=== PATIENT | female | born 1990 | race Caucasian/White ===

== ENCOUNTER → 2017-05-23 | Outpatient (CLI) | payer OTHER ==
[~2017-05-23] MED LIST: ZNTT/150 PO
== END | disposition home or self-care (01) ==
LOC: C.PAPS 12:15
PROVIDERS: ATTEND Physician Assistant
DX: Z12.4 Encounter for screening for malignant neoplasm of cervix (principal)

== ENCOUNTER → 2017-06-30 | Outpatient (CLI) | payer OTHER | END | disposition home or self-care (01) | LOC: C.PATHSPEC 17:29 | PROVIDERS: ATTEND Surgery | DX: L72.0 Epidermal cyst (principal) ==

== ENCOUNTER 2019-08-31 05:39 | Inpatient (IN) ==
[2019-08-31] MEDS ORDERED: OXYTOCIN 30 UNITS/500 ML BAG IV PRN ×3 (06:18→13:32)
[2019-08-31] MEDS ORDERED: BUTORPHANOL TARTRATE 1 MG/ML VIAL IV PRN (06:20)
--- NOTE | 2019-08-31 06:22 | History & Physical Report ---
Date of Service August 31, 2019 Assessment & Plan (1) Prolonged , antepartum: Admit to L&D. EFM/[place]. Labs, IV fluids. Will consult anesthesia due to fentanyl allergy for pain control options. History of Present Illness Chief Complaint: contractions Primary Care Provider: NO PCP 29yo @ 40 0/7 with contractions. + movement, no vaginal bleeding, no leaking fluid. uncomplicated. Cervix was closed in office on 08/28. Allergies Allergy/AdvReac Type Severity Reaction Status Date / Time fentanyl Allergy Severe HIVES Verified 08/31/19 05:54 ANAPHYLAXSIS Home Medications Home Medications Medication Instructions Recorded Confirmed Type prenat.vits,karlie,[id number] 1 tab PO DAILY 04/03/19 08/31/19 History Patient History Social History (Updated 07/24/19 @ 15:27 by Kalpana Anand) Preferred Language: [place] Communication Ability: Effective Visual Impairment: No Limitations Hearing Ability: Normal Visitor Services Assistant Required: No marital status: Current Living Situation: Spouse current occupational status: employed Feels Safe at Home: Yes Safety Concerns: Feels Safe At This Time Smoking Status: Former smoker Tobacco Type: cigarettes ; Age Started Using Tobacco: 19 ; Age Quit Using Tobacco: 28 ; packs per day: 1 ; Cigarettes Per Day: 2 ; Second Hand Exposure: Yes ; Hx Alcohol Use: No Hx Substance Use: No Childhood Exposure to Second-Hand Smoke: Yes Dental Care, Regularly: Yes Physical Activity Frequency: Daily Seatbelt Use: always Sunscreen Use: Yes Review of Systems All systems reviewed & are unremarkable except as noted in HPI & below Physical Exam Physical Exam: FHT Cat 1 toco Q 2-3 Constitutional: WD/WN, vitals as above Respiratory: normal respiratory effort, lungs clear to auscultation no respiratory distress Cardiovascular: Rate/Rhythm: regular rate and regular rhythm Gastrointestinal (Abdomen): Inspection/Auscultation: abdomen normal to inspection Percussion/Palpation: abdomen soft; abdomen nontender Gravid. No s/s chorio or abruption. Skin: no rashes, warm and dry Psychiatric: A+Ox3, euthymic affect Results & Data Vital Signs (Past 12 Hours) Vital Signs Temp Pulse Resp BP 08/31/19 05:56 36.6 C 18 08/31/19 05:49 76 129/60
[2019-08-31 06:43] LABS: Hematocrit (blood only) 38.4 % (37-47); Hemoglobin 12.9 g/dL (12.0-16.0); Mean Corpuscular Hemoglobin 29.7 pg (25-34); Mean Corpuscular Volume 88.5 fL (80-100); Mean Platelet Volume 9.3 fL (7.4-10.4); Platelet Count 370 K/uL (130-400); RDW Coefficient of Variation 13.9 % (11.5-14.5); RDW Standard Deviation 45.4 fL (36.4-46.3); Red Blood Count 4.34 M/uL (4.2-5.4); White Blood Count 13.52 K/uL (4.8-10.8)
[2019-08-31 06:47] LABS: Mean Corpuscular Hgb Conc 33.6 g/dL (32-36)
[2019-08-31] MEDS: LACTATED RINGER'S 1,000 ML IV PRN ×2 (07:04→08:20)
[2019-08-31] MEDS ORDERED: ONDANSETRON INJ 2 MG/ML 2 ML VIAL IV PRN (07:10)
[2019-08-31] MEDS ORDERED: DiphenhydrAMINE HCL 50 MG/ML VIAL IV PRN (07:10)
[2019-08-31] MEDS ORDERED: NALOXONE HCL 1 MG in SODIUM CHLORIDE 0.9% 1000ML 1,000 ML IV PRN (07:10)
[2019-08-31] MEDS ORDERED: NALOXONE HCL 0.4 MG/1 ML VIAL/CARP IV PRN (07:10)
[2019-08-31] MEDS ORDERED: NALBUPHINE HCL INJ 10 MG/ML AMP IV PRN (07:10)
[2019-08-31] MEDS ORDERED: ePHEDrine sulfate 50 MG/ML AMP IV PRN (07:10)
[2019-08-31] MEDS ORDERED: ROPIVACAINE 0.5% EPI PRN (07:28)
[2019-08-31] MEDS ORDERED: SODIUM CHLORIDE 0.9% EPI PRN (07:28)
[2019-08-31] MEDS ORDERED: HCL EPI PRN (07:28)
--- NOTE | 2019-08-31 07:31 | Anesthesiology Consultation ---
Date of Service August 31, 2019 Assessment & Plan (1) Encounter for pre-operative examination: Chart Review Chart Review: Patient NOT seen in Pre Admission Testing and Acceptable Risk for Labor Epidural Consults Requested none History Height/Weight Height: 4 ft 11 in Weight: 83.915 kg Allergies Allergy/AdvReac Type Severity Reaction Status Date / Time fentanyl Allergy Severe HIVES Verified 08/31/19 05:54 ANAPHYLAXSIS Medications Home Medications Medication Instructions Recorded Confirmed Last Taken prenat.vits,karlie,[id number] 1 tab PO DAILY 04/03/19 08/31/19 08/30/19 08:00 Active Medications Generic Name Dose Route Start Last Admin Trade Name Freq PRN Reason Stop Dose Admin Butorphanol Tartrate 1 mg 08/31/19 06:20 08/31/19 06:44 Stadol IV 09/30/19 06:19 1 mg Q2H PRN Administration Pain Lactated Ringer's 1,000 mls @ 125 mls/hr 08/31/19 06:18 08/31/19 07:04 Lr IV 09/02/19 06:17 999 mls/hr .Q8H PRN Administration L&D Protocol Protocol Past Medical History Medical History Abscess of chest wall (Resolved) Breast mass (Resolved) Chest pain (Resolved) Dysfunctional uterine bleeding (Resolved) Headache associated with sexual activity type 2 (Resolved) Ingrowing toenail (Resolved) Mass of right breast Nostril infection Pain, lower extremity Postcoital bleeding (Resolved) Right shoulder pain (Resolved) Suspected DVT (deep vein thrombosis) (Resolved) Thrush URI (upper respiratory infection) Varicosities of leg Exercise / Class Metabolic Activity II 4-5 Yardwork/Stairs/Walk up hill Past Family History Family History Grandfather (Maternal) Colorectal cancer Grandfather Diabetes Colorectal cancer Mother Lung disease Breast cancer Father Heart disease Lung disease Other Stroke Past Surgical History Surgical History S/P cholecystectomy S/P LASIK surgery S/P tonsillectomy S/P wisdom tooth extraction Past Anesthesia History No Hx of Anesthesia Complications and No Family Hx of Anesthesia Complications History of PONV No Hx of PONV and No Hx of Motion Sickness Social History Smoking Status: Former smoker tobacco type: cigarettes Smoking cigarettes per day: 2 Hx Alcohol Use: No Hx Substance Use: No Physical Exam Vital Signs Last Vital Signs Temp 36.7 C 08/31/19 07:15 Pulse 71 08/31/19 07:24 Resp 20 08/31/19 07:15 BP 112/68 08/31/19 07:14 Pulse Ox 95 08/31/19 07:24 Testing Laboratory Results 08/31/19 06:31
[2019-08-31] MEDS ORDERED: fentaNYL citrate 100 MCG/2 ML VIAL ONE (07:42)
[2019-08-31] MEDS ORDERED: ePHEDrine sulfate 50 MG/ML AMP ONE (07:42)
[2019-08-31] MEDS ORDERED: BUPIVACAINE 0.25% 30 ML VIAL ONE (07:42)
[2019-08-31] MEDS ORDERED: fentaNYL 2MCG/ML ROPIV 1.25MG/ML 100 ML BAG EPI ONE ×2 (07:43→08:09)
--- NOTE | 2019-08-31 10:36 | Labor Progress Brief Note ---
Date of Service August 31, 2019 Subjective comfortable Assessment & Plan (1) Normal labor: Will give some gentle pit to get contractions closer and more regular. fetus category one. anticipate . Physical Exam Constitutional: WD/WN, vitals as above Psychiatric: A+Ox3, euthymic affect Genitourinary: cx--8/100/0 arom--thin mec toco--q3-5min efm--140s wtih mod variability, accels to 150s, no decels Results & Data Vital Signs (Past 12 Hours) Vital Signs Temp Pulse Resp BP Pulse Ox 08/31/19 10:31 122 H 118/65 08/31/19 10:29 125 H 97 08/31/19 10:24 120 H 97 08/31/19 10:19 115 H 97 08/31/19 10:14 94 H 97 08/31/19 10:13 114 H 124/65 08/31/19 10:09 108 H 128/58 L 97 08/31/19 10:04 110 H 112/58 L 97 08/31/19 09:59 111 H 97 08/31/19 09:57 126 H 112/61 08/31/19 09:55 91 H 109/57 L 08/31/19 09:54 109 H 96 08/31/19 09:53 112 H 98/56 L 08/31/19 09:51 105 H 111/59 L 08/31/19 09:49 104 H 109/61 97 08/31/19 09:47 105 H 109/55 L 08/31/19 09:46 101 H 117/59 L 08/31/19 09:44 92 H 97 08/31/19 09:40 97 H 109/58 L 08/31/19 09:39 99 H 96 08/31/19 09:36 95 H 120/67 08/31/19 09:34 90 98 08/31/19 09:31 86 121/62 08/31/19 09:29 86 96 08/31/19 09:24 90 113/60 98 08/31/19 09:20 90 111/56 L 08/31/19 09:19 86 98 08/31/19 09:15 75 122/63 08/31/19 09:13 97 H 85 L 08/31/19 09:12 84 118/73 08/31/19 09:07 67 122/74 97 08/31/19 09:06 94 H 91 08/31/19 09:02 80 121/85 95 08/31/19 09:00 94 H 91 08/31/19 08:57 80 98 08/31/19 08:55 73 101/55 L 08/31/19 08:52 79 98 08/31/19 08:49 83 107/61 08/31/19 08:47 75 98 08/31/19 08:46 83 94 08/31/19 08:45 75 103/58 L 08/31/19 08:42 76 99 08/31/19 08:40 75 103/58 L 08/31/19 08:37 82 97 08/31/19 08:35 88 107/56 L 08/31/19 08:32 72 96 08/31/19 08:30 97 H 93 08/31/19 08:29 91 H 101/59 L 08/31/19 08:27 80 95/51 L 97 08/31/19 08:25 77 105/54 L 08/31/19 08:23 78 95/52 L 08/31/19 08:22 82 97 08/31/19 08:21 83 105/51 L 08/31/19 08:19 86 104/57 L 08/31/19 08:17 84 99/54 L 97 08/31/19 08:15 85 98/54 L 08/31/19 08:13 80 108/53 L 08/31/19 08:12 87 95 08/31/19 08:11 96/57 L 08/31/19 08:09 79 98/60 L 08/31/19 08:07 82 108/55 L 95 08/31/19 08:05 88 107/55 L 08/31/19 08:03 87 115/56 L 08/31/19 08:02 93 H 96 08/31/19 08:01 82 128/68 08/31/19 07:59 68 123/63 08/31/19 07:57 82 96 08/31/19 07:53 82 93 08/31/19 07:52 91 H 97 08/31/19 07:39 84 98 08/31/19 07:34 86 97 08/31/19 07:29 75 97 08/31/19 07:24 71 95 08/31/19 07:19 79 96 08/31/19 07:15 36.7 C 20 08/31/19 07:14 82 112/68 98 08/31/19 07:11 89 94 08/31/19 07:09 92 H 97 08/31/19 07:04 82 96 08/31/19 06:59 94 H 96 08/31/19 06:54 81 99 08/31/19 06:49 78 97 08/31/19 06:44 82 95 08/31/19 05:56 36.6 C 18 08/31/19 05:49 76 129/60
[2019-08-31] MEDS ORDERED: CALCIUM CARBONATE 500 MG CHEWABLE TAB ONE (11:33)
[2019-08-31] MEDS ORDERED: CALCIUM CARBONATE 500 MG CHEWABLE TAB PO PRN ×2 (11:37→17:02)
[2019-08-31] MEDS ORDERED: OXYCODONE/ACETAMINOPHEN 5mg/325mg TAB PO PRN (13:22)
--- NOTE | 2019-08-31 13:28 | Delivery Summary ---
Vaginal Delivery Summary Date of Service August 31, 2019 Vaginal Delivery Summary Pre-operative Diagnosis: at 40 weeks labor Post-operative Diagnosis: at 40 week labor thin mec Procedure: epidural arom first degree lac and right labial lac and repair EBL: 350cc Anesthesia: epidural Procedure: The patient pushed for about 2 hours to deliver a viable female infant in mikie position. The nose and mouth were bulb suctioned on the perineum and the rest of the infant was then delivered without difficulty. The baby was vigorous. The nose and mouth were again bulb suctioned and the infant was placed in the maternal abdomen for drying and attention. Cord was clamped and cut at one minute of life. Cord blood and segment obtained. Placenta delivered spontaneous, intact with a three vessel cord. Cervix/sulci/rectum were intact. A first degree perineal and right labial laceration was repaired in the normal standard fashion. Hemostasis obtained with dilute pitocin and fundal massage. Apgars were 9/9. Mother and baby doing well at the end of the delivery.
[2019-08-31] MEDS: ACETAMINOPHEN 325 MG TAB PO PRN (13:29)
[2019-08-31] MEDS ORDERED: SUPERCREAM 0.870% 15 GM JAR EXT PRN (13:32)
[2019-08-31] MEDS ORDERED: HYDROCORTISONE ACETATE 25 MG SUPP PR PRN (13:32)
[2019-08-31] MEDS ORDERED: DIPHTHERIA/TETANUS/PERTUSSIS 0.5 ML SYR/VIAL IM ONE (13:32)
[2019-08-31] MEDS ORDERED: BENZOCAINE 20% AER SPR 82.5 GM CAN EXT PRN (13:32)
[2019-08-31] MEDS ORDERED: bisacodyL 10 MG SUPP PR PRN (13:32)
--- NOTE | 2019-08-31 14:11 | Anesthesia Procedure Note ---
Date of Service August 31, 2019 Anesthesia Post Epidural Note Vital Signs Vital Signs: Temp Pulse Resp BP Pulse Ox 36.7 C 83 20 130/60 98 08/31/19 07:15 08/31/19 14:01 08/31/19 07:15 08/31/19 14:01 08/31/19 12:59 Pain Intensity Abdomen: Pain Intensity: 2 Notes Mental Status: alert / awake / arousable and participated in evaluation Patient Amnestic to Procedure: No Nausea / Vomiting: adequately controlled Pain: adequately controlled Airway Patency, RR, SpO2: stable & adequate BP & HR: stable & adequate Hydration State: stable & adequate Neuraxial Anesthesia: was administered and sensory block is resolving Anesthetic Complications: no major complications apparent and Pt Satisfied with anesthetic care Epidural: Removed without complications and With tip intact
[2019-08-31] MEDS: IBUPROFEN 600 MG TAB PO PRN (17:26)
[2019-08-31] MEDS: DOCUSATE SODIUM 100 MG CAP PO SCH (20:50)
[2019-09-01 07:06] LABS: Hematocrit (blood only) 33.2 % (37-47); Hemoglobin 11.2 g/dL (12.0-16.0)
--- NOTE | 2019-09-01 07:10 | Obstetrical Progress Note ---
Date of Service September 01, 2019 Assessment & Plan (1) Vaginal delivery: Doing well. Routine care. Day #:: 1 Subjective Ambulation: ambulating normally Voiding: no voiding problems Passing Gas:: Yes Diet Tolerance:: regular diet Lochia:: Small Feeding Type:: breast feeding Doing well. Physical Exam Constitutional WD/WN, vitals as above Cardiovascular Extremities: + edema (trace); no calf tenderness Gastrointestinal (Abdomen) soft, nt, nd ff/nt at u Psychiatric A+Ox3, euthymic affect Results & Data Vital Signs (Past 12 Hours) Vital Signs Temp Pulse Resp BP Pulse Ox 09/01/19 04:40 37.0 C 78 16 106/65 08/31/19 23:50 37.1 C 82 16 106/54 L 08/31/19 20:10 36.4 C L 62 20 126/71 98
[2019-09-01] MEDS: ACETAMINOPHEN 325 MG TAB PO PRN (07:30)
[2019-09-01] MEDS: PRENATAL VITAMIN 1 TAB PO SCH (07:30)
[2019-09-01] MEDS: DOCUSATE SODIUM 100 MG CAP PO SCH ×2 (07:30→19:46)
[2019-09-01] MEDS ORDERED: bisacodyL 5 MG TABEC PO SCH (20:00)
[2019-09-02] MEDS: IBUPROFEN 600 MG TAB PO PRN (06:49)
[2019-09-02] MEDS: DOCUSATE SODIUM 100 MG CAP PO SCH (07:58)
[2019-09-02] MEDS: PRENATAL VITAMIN 1 TAB PO SCH (07:58)
--- NOTE | 2019-09-02 08:21 | Obstetrical Progress Note ---
Date of Service September 02, 2019 Assessment & Plan (1) Vaginal delivery: 29yo S/P . Day 2 Doing well. Stable for discharge Day #:: 2 Subjective Ambulation: ambulating normally Voiding: no voiding problems Passing Gas:: Yes Diet Tolerance:: regular diet Lochia:: Moderate Current Pain Level(1-10): 2 Physical Exam Constitutional WD/WN, vitals as above Respiratory normal respiratory effort; no respiratory distress and no labored breathing Gastrointestinal (Abdomen) Inspection/Auscultation: abdomen normal to inspection; abdomen not distended Percussion/Palpation: abdomen soft; abdomen nontender, no guarding and abdomen not rigid Genitourinary OB Exam Abdomen: + fundal height Fundus: + firm and + relation to umbilicus (Below); not tender and not boggy Results & Data Vital Signs (Past 12 Hours) Vital Signs Temp Pulse Resp BP Pulse Ox 09/02/19 07:33 37.0 C 55 L 18 111/61 09/01/19 23:20 37.2 C 65 18 113/72 95
== END 2019-09-02 11:30 | disposition home or self-care (01) | DRG 807 ==
LOC: OPB 05:39 → 4S1 05:41 → 4S2 15:56

== ENCOUNTER 2020-08-07 18:15 | Inpatient (IN) ==
[2020-08-07] MEDS ORDERED: diphenhydrAMINE 50 MG/ML VIAL IV STA (18:33)
[2020-08-07] MEDS ORDERED: PROMETHAZINE 12.5 MG/50.5 ML BAG IV STA ×2 (18:33→20:34)
[2020-08-07] MEDS ORDERED: MoRPHine SULFATE 4 MG/ML 1 ML CARP\\VIAL IV STA ×2 (18:33→20:31)
[2020-08-07] MEDS ORDERED: ONDANSETRON INJ 2 MG/ML 2 ML VIAL IV STA (18:33)
[2020-08-07] MEDS ORDERED: SODIUM CHLORIDE 0.9% 1000ML 1,000 ML IV ONE (18:33)
[2020-08-07] MEDS ORDERED: KETOROLAC TROMETHAMINE 15 MG/ML VIAL IV STA (18:33)
--- NOTE | 2020-08-07 18:38 | Emergency Department Note ---
Impression & Plan Diffuse abdominal pain, Vomiting and diarrhea, Acute dehydration, COVID-19 ED Provider Note NAME: REBEKAH MIRANDA AGE: 30 SEX: F : 1990 ARRIVES VIA: Walk-In INFORMANT: [Patient] ED PROVIDER(S): [Aristeo Gallagher MD] CHIEF COMPLAINT: Abdominal pain HISTORY OF PRESENT ILLNESS: The patient is a 30-year-old female presents to the ER with 5 days of symptoms. She has had vomiting, nausea and diarrhea. She has diffuse abdominal pain that is a 9 on a scale of 1-10. Nothing makes the pain in the stomach better or worse. Patient states that she had a low-grade temperature with the start of her symptoms but that has resolved. There is no shortness of breath, no urinary complaints. She does not have cough or congestion or sore throat. No issues with her taste or smell. Of note, patient did test positive for COVID-19 on 30 July, at the time of her test, she was asymptomatic. She became ill after the test results returned. The patient's has COVID-19 but he has had significant improvement in his symptoms. REVIEW OF SYSTEMS: See HPI for pertinent positives and negatives. A total of ten systems were reviewed and were otherwise negative. PMHx/PSHx: See Below SOCIAL HISTORY: See Below. PHYSICAL EXAM: GENERAL: Patient is in no acute distress. HEENT: No acute trauma, normocephalic atraumatic, mucous membranes moist, no nasal congestion, no scleral icterus. NECK: No stridor, no adenopathy, no meningismus, trachea is midline. LUNGS: Clear to auscultation bilaterally, no wheeze, no rhonchi, breath sounds equal. HEART: Without murmurs gallops or rubs, regular rate and rhythm. ABDOMEN: Soft, mildly diffusely tender, bowel sounds positive, no hernias, no peritonitis. EXTREMITIES: No cyanosis or edema, full range of motion of all the joints without pain or difficulty, no signs for acute trauma. NEUROLOGIC: Oriented x 3, no acute motor or sensory deficits, no focal weakness. SKIN: No rash, no jaundice, no diaphoresis. DIFFERENTIAL DIAGNOSIS: Appendicitis, ovarian cyst, ovarian torsion, ectopic , TOA, PID, infections, COVID-19, dehydration, diverticulitis, UTI, obstruction, mesenteric ischemia, aortic pathology, inflammatory bowel disease, renal colic, PUD, pancreatitis, biliary pathology, hernia, volvulus, constipation, as well as other pathologies. EMERGENCY DEPARTMENT COURSE/PROCEDURES: ECG: Indication was abdominal pain. The ECG shows a normal sinus rhythm with a rate of 60. The QTc is 426. There is some diffuse nonspecific ST change. No ST elevation, no PVCs. Continuous Cardiac Monitoring: An order was placed for continuous cardiac monitoring. The monitor shows a rate of 62 with normal sinus rhythm. MEDICAL DECISION MAKING: There is no leukocytosis. No anemia. The patient has a normal platelet count. Potassium mildly low at 3.3, this value is not in need of emergent correction. There was no kidney failure. No worrisome liver enzyme elevation. No evidence for pancreatitis. testing was negative. ECG shows a sinus rhythm, no acute ischemia. Cardiac enzyme testing x1 is not consistent with acute cardiac injury. Urinalysis suggests some dehydration, no obvious infection. Chest film did not show pneumonia or CHF, there was no free air. Abdominal and pelvis CT shows a suspected bilateral Covid pneumonia, no acute intra-abdominal process, no bowel obstruction, no evidence for abscess. The patient presents with a diagnosis of COVID-19. She has had persistent vomiting, diarrhea and abdominal pain. She received IV saline, 1.5 L. She was given IV Phenergan, IV Zofran and IV morphine, she was given IV Toradol. She received IV Benadryl. She required some additional IV Phenergan and IV morphine for symptom control. Patient has had ongoing vomiting and diarrhea, she has diffuse abdominal pain. She does have COVID-19. The patient has required numerous medication to control her symptoms. She is still nauseated although feeling somewhat better. I do think a hospital stay is warranted. She needs symptom control and further hydration. I spoke to the patient, I talked to case management, the on-call hospitalist was consulted. Past Med/Surg History Medical History Abscess of chest wall Breast mass Chest pain Dysfunctional uterine bleeding Headache associated with sexual activity type 2 Ingrowing toenail Mass of right breast Nostril infection Pain, lower extremity Postcoital bleeding Right shoulder pain Suspected DVT (deep vein thrombosis) Thrush URI (upper respiratory infection) Varicosities of leg Surgical History (System 02/01/20 @ 13:37 by Leda Parham) H/O excision of epidermal inclusion cyst 06/30/17 - Dr Ramos: inflamed epidermal cyst History of dermoid cyst excision 01/26/[address] Ramos - right inner thigh/groin: granulation tissue a ssociated with acute and chronic inflammation including giant cell reaction surrounding follicle consistent with ruptured follicle/cyst S/P cholecystectomy S/P LASIK surgery 2015 S/P tonsillectomy S/P wisdom tooth extraction Family History (System 02/01/20 @ 13:37 by Leda Parham) Grandfather (Maternal) Colorectal cancer Grandfather Diabetes Mother Lung disease Small cell lung cancer. 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 Beliefs That Will Affect Care: None marital status: Current Living Situation: Spouse current occupational status: employed Feels Safe at Home: Yes Childhood Exposure to Second-Hand Smoke: Yes Dental Care, Regularly: Yes Physical Activity Frequency: Daily Seatbelt Use: always Sunscreen Use: Yes Assistive Devices: None Allergies Allergies Allergy/AdvReac Type Severity Reaction Status Date / Time fentanyl Allergy Severe HIVES Verified 08/07/20 18:36 ANAPHYLAXSIS Home Meds Home Medications Medication Instructions Recorded Confirmed levonorgestrel 20 mcg/24 hours (6 1 device IU DAILY 01/04/20 08/07/20 yrs) 52 mg intrauterine device Previous Rx's Medication Instructions Recorded ondansetron HCl 8 mg tablet 8 mg PO Q8H PRN #30 tab 08/07/20 Results & Data (ED) Vital Signs Vital Signs - 24 hr 08/07/20 18:18 08/07/20 19:05 08/07/20 19:55 Temperature 37 C Temperature Source Temporal Artery Scan Pulse Rate 76 56 L 76 Pulse Rate from SpO2 Sensor 56 L 63 Respiratory Rate 18 12 16 Respiratory Effort / Characteristics Non-Labored Respiratory Depth Normal Blood Pressure 132/90 107/66 110/65 Blood Pressure Mean 104 78 79 Pulse Oximetry 98 97 98 Oxygen Delivery Method Room Air Sepsis Recent Fever Within 48 Hours No Sepsis New/Unexplained Change in Mental Status No Sepsis Action Taken by Nursing No Action Required 08/07/20 20:00 08/07/20 20:30 08/07/20 21:10 Temperature Temperature Source Pulse Rate 61 57 L 61 Pulse Rate from SpO2 Sensor 54 L 56 L Respiratory Rate 20 17 20 Respiratory Effort / Characteristics Respiratory Depth Blood Pressure 118/66 130/81 135/80 Blood Pressure Mean 81 97 94 Pulse Oximetry 98 100 Oxygen Delivery Method Sepsis Recent Fever Within 48 Hours Sepsis New/Unexplained Change in Mental Status Sepsis Action Taken by Nursing 08/07/20 21:27 08/07/20 21:30 08/07/20 22:00 Temperature Temperature Source Pulse Rate 72 69 62 Pulse Rate from SpO2 Sensor 66 69 61 Respiratory Rate 15 16 18 Respiratory Effort / Characteristics Respiratory Depth Blood Pressure 122/65 118/72 104/73 Blood Pressure Mean 73 93 94 Pulse Oximetry 98 95 96 Oxygen Delivery Method Sepsis Recent Fever Within 48 Hours Sepsis New/Unexplained Change in Mental Status Sepsis Action Taken by Nursing 08/07/20 22:30 Temperature Temperature Source Pulse Rate Pulse Rate from SpO2 Sensor 60 Respiratory Rate Respiratory Effort / Characteristics Respiratory Depth Blood Pressure 99/65 L Blood Pressure Mean 70 Pulse Oximetry 97 Oxygen Delivery Method Sepsis Recent Fever Within 48 Hours Sepsis New/Unexplained Change in Mental Status Sepsis Action Taken by Usp Medications Current Medication List: was personally reviewed by me Laboratory Data Attestation: I reviewed the patient's lab results. Result diagrams: 08/07/20 19:03 08/07/20 19:03 Lab Results 08/07/20 08/07/20 08/07/20 Range/Units 19:03 19:03 19:03 WBC 4.40 L (4.8-10.8) K/uL RBC 5.08 (4.2-5.4) M/uL Hgb 15.1 (12.0-16.0) g/dL Hct 42.6 (37-47) % MCV 83.9 (80-100) fL MCH 29.7 (25-34) pg MCHC 35.4 (32-36) g/dL RDW Std Deviation 38.1 (36.4-46.3) fL RDW Coeff of [place] 12.6 (11.5-14.5) % Plt Count 196 (130-400) K/uL MPV 9.5 (7.4-10.4) fL Immature Gran % (Auto) 0.2 % Neut % (Auto) 40.3 % Lymph % (Auto) 50.0 % [place] % (Auto) 8.6 % Eos % (Auto) 0.7 % Baso % (Auto) 0.2 % Neut # (Auto) 1.77 (1.4-6.5) K/uL Lymph # (Auto) 2.20 (1.2-3.4) K/uL [place] # (Auto) 0.38 (0.11-0.59) K/uL Eos # (Auto) 0.03 (0-0.5) K/uL Baso # (Auto) 0.01 (0-0.2) K/uL Immature Gran # (Auto) 0.01 (0.00-0.02) K/uL Sodium 140 (136-145) mmol/L Potassium 3.3 L (3.5-5.1) mmol/L Chloride 107 (98-107) mmol/L Carbon Dioxide 27 (21-32) mmol/L Anion Gap 6.0 (3-11) BUN 11 (7-18) mg/dl Creatinine 0.90 (0.6-1.2) mg/dl Est Cr Clr Drug Dosing 86.7 ml/min Est GFR ( Amer) 99.4 Est GFR (Non-Af Amer) 85.8 BUN/Creatinine Ratio 12.2 (10-20) Glucose 101 H (70-99) mg/dl Calcium 8.6 (8.5-10.1) mg/dl Magnesium 2.4 (1.8-2.4) mg/dl Total Bilirubin 0.5 (0.2-1) mg/dl AST 29 (15-37) U/L ALT 56 (12-78) U/L Alkaline Phosphatase 88 (45-117) U/L Troponin I (0-0.045) ng/ml Total Protein 7.6 (6.4-8.2) gm/dl Albumin 3.9 (3.4-5.0) gm/dl Globulin 3.7 (2.5-4.0) gm/dl Albumin/Globulin Ratio 1.1 (0.9-2) Lipase 132 (73-393) U/L HCG, Qual Negative (Negative) Urine Color Urine Appearance (Clear) Urine pH (4.5-7.5) Ur Specific [place] (1.000-1.030) Urine Protein (Negative) Urine Glucose (UA) (Negative) Urine Ketones (Negative) Urine Blood (Negative) Urine Nitrite (Negative) Urine Bilirubin (Negative) Urine Urobilinogen (Negative) Ur Leukocyte Esterase (Negative) Urine WBC (Auto) (0-5) /hpf Urine RBC (Auto) (0-4) /hpf U Hyaline Cast (Auto) (0-5) /lpf U Epithel Cells (Auto) (0-5) /lpf Urine Bacteria (Auto) (Negative) Ur Renal Epithelial Cell Urine Mucus (None Prsent) 08/07/20 08/07/20 Range/Units 19:03 19:03 WBC (4.8-10.8) K/uL RBC (4.2-5.4) M/uL Hgb (12.0-16.0) g/dL Hct (37-47) % MCV (80-100) fL MCH (25-34) pg MCHC (32-36) g/dL RDW Std Deviation (36.4-46.3) fL RDW Coeff of [place] (11.5-14.5) % Plt Count (130-400) K/uL MPV (7.4-10.4) fL Immature Gran % (Auto) % Neut % (Auto) % Lymph % (Auto) % [place] % (Auto) % Eos % (Auto) % Baso % (Auto) % Neut # (Auto) (1.4-6.5) K/uL Lymph # (Auto) (1.2-3.4) K/uL [place] # (Auto) (0.11-0.59) K/uL Eos # (Auto) (0-0.5) K/uL Baso # (Auto) (0-0.2) K/uL Immature Gran # (Auto) (0.00-0.02) K/uL Sodium (136-145) mmol/L Potassium (3.5-5.1) mmol/L Chloride (98-107) mmol/L Carbon Dioxide (21-32) mmol/L Anion Gap (3-11) BUN (7-18) mg/dl Creatinine (0.6-1.2) mg/dl Est Cr Clr Drug Dosing ml/min Est GFR ( Amer) Est GFR (Non-Af Amer) BUN/Creatinine Ratio (10-20) Glucose (70-99) mg/dl Calcium (8.5-10.1) mg/dl Magnesium (1.8-2.4) mg/dl Total Bilirubin (0.2-1) mg/dl AST (15-37) U/L ALT (12-78) U/L Alkaline Phosphatase (45-117) U/L Troponin I < 0.015 (0-0.045) ng/ml Total Protein (6.4-8.2) gm/dl Albumin (3.4-5.0) gm/dl Globulin (2.5-4.0) gm/dl Albumin/Globulin Ratio (0.9-2) Lipase (73-393) U/L HCG, Qual (Negative) Urine Color Dark Yellow Urine Appearance Cloudy A (Clear) Urine pH 5.5 (4.5-7.5) Ur Specific [place] 1.025 (1.000-1.030) Urine Protein 1+ H (Negative) Urine Glucose (UA) Negative (Negative) Urine Ketones 1+ H (Negative) Urine Blood 1+ H (Negative) Urine Nitrite Negative (Negative) Urine Bilirubin Negative (Negative) Urine Urobilinogen Negative (Negative) Ur Leukocyte Esterase Negative (Negative) Urine WBC (Auto) 10-30 H (0-5) /hpf Urine RBC (Auto) 0-4 (0-4) /hpf U Hyaline Cast (Auto) 1-5 (0-5) /lpf U Epithel Cells (Auto) >30 H (0-5) /lpf Urine Bacteria (Auto) 1+ H (Negative) Ur Renal Epithelial Cell Not Reportable Urine Mucus Present A (None Prsent) Administered Medications Discontinued Medications Diphenhydramine HCl (Diphenhydramine 50 Mg/Ml Vial) 12.5 mg IV NOW STA Stop: 08/07/20 18:34 Last Admin: 08/07/20 19:23 Dose: 12.5 mg Documented by: [id number] Sodium Chloride (Nss 1000ml) 1,000 mls @ 999 mls/hr IV .Q1H1M ONE Stop: 12/17/20 19:33 Last Infusion: 08/07/20 20:47 Dose: 0 mls/hr Documented by: [id number] Admin: 08/07/20 19:22 Dose: 999 mls/hr Documented by: [id number] Promethazine HCl (Phenergan) 12.5 mg in 50.5 mls @ 202 mls/hr IV NOW STA Stop: 08/07/20 18:47 Last Infusion: 08/07/20 19:51 Dose: 0 mls/hr Documented by: [id number] Admin: 08/07/20 19:26 Dose: 202 mls/hr Documented by: [id number] Sodium Chloride (Nss 1000ml) 500 mls @ 999 mls/hr IV .Q31M ONE Stop: 08/07/20 20:36 Last Infusion: 08/07/20 22:21 Dose: 0 mls/hr Documented by: [id number] Admin: 08/07/20 21:05 Dose: 999 mls/hr Documented by: [id number] Promethazine HCl (Phenergan) 12.5 mg in 50.5 mls @ 202 mls/hr IV NOW STA Stop: 08/07/20 20:48 Last Infusion: 08/07/20 21:27 Dose: 0 mls/hr Documented by: [id number] Admin: 08/07/20 21:06 Dose: 202 mls/hr Documented by: [id number] Ioversol (Ioversol 100ml) 93 ml IV ONCE ONE Stop: 08/07/20 20:55 Last Admin: 08/07/20 20:54 Dose: 93 ml Documented by: [id number] Ketorolac Tromethamine (Ketorolac Tromethamine 15 Mg/Ml Vial) 15 mg IV NOW STA Stop: 08/07/20 18:34 Last Admin: 08/07/20 19:23 Dose: 15 mg Documented by: [id number] Morphine Sulfate (Morphine Sulfate 4 Mg/Ml 1 Ml Carp\Vial) 4 mg IV NOW STA Stop: 08/07/20 18:34 Last Admin: 08/07/20 19:24 Dose: 4 mg Documented by: [id number] Morphine Sulfate (Morphine Sulfate 4 Mg/Ml 1 Ml Carp\Vial) 4 mg IV NOW STA Stop: 08/07/20 20:32 Last Admin: 08/07/20 21:06 Dose: 4 mg Documented by: [id number] Ondansetron HCl (Ondansetron Inj 2 Mg/Ml 2 Ml Vial) 4 mg IV NOW STA Stop: 08/07/20 18:34 Last Admin: 08/07/20 19:22 Dose: 4 mg Documented by: [id number] Imaging Data Attestation: I personally reviewed and interpreted this imaging study as follows: My Impression: Chest x-ray: There is no focal infiltrate, no pneumothorax or mediastinal widening. No free air. Radiologist's Impression: Abdominal and pelvis CT with IV contrast: There are some lower lobe airway opacities consistent with COVID-19 pneumonia. No biliary ductal dilatation. There has been a cholecystectomy. No GI or urinary tract obstruction. Unremarkable appendix. There is an intrauterine device. Discharge Plan Visit Data Chief Complaint: Abdominal Pain Stated Complaint: ABD PAIN, COVID+ ED Provider: Aristeo Gallagher Discharge Problem: Diffuse abdominal pain, Vomiting and diarrhea, Acute dehydration, COVID-19 Patient Disposition: Admitted As Inpatient Condition: Fair Forms Stand Alone Forms: My [facility] Prescriptions Prescriptions: No Action ondansetron HCl 8 mg tablet 8 mg PO Q8H PRN (Reason: nausea and vomiting) Qty: 30 RF: 1 Mirena 20 mcg/24 hours (5 yrs) 52 mg intrauterine device 1 device IU DAILY RF: 0 Referrals Referrals: Alessandra Gonzalez MD [Primary Care Provider] -
[2020-08-07 19:20] LABS: Hematocrit (blood only) 42.6 % (37-47); Hemoglobin 15.1 g/dL (12.0-16.0); Mean Corpuscular Hemoglobin 29.7 pg (25-34); Mean Corpuscular Hgb Conc 35.4 g/dL (32-36); Mean Corpuscular Volume 83.9 fL (80-100); Mean Platelet Volume 9.5 fL (7.4-10.4); Platelet Count 196 K/uL (130-400); RDW Coefficient of Variation 12.6 % (11.5-14.5); RDW Standard Deviation 38.1 fL (36.4-46.3); Red Blood Count 5.08 M/uL (4.2-5.4)
[2020-08-07 19:38] LABS: Albumin Level 3.9 gm/dl (3.4-5.0); BUN Creatinine Ratio 12.2 (10-20); Calcium 8.6 mg/dl (8.5-10.1); Creatinine Clr Calc Pharmacy 86.7 ml/min; Est GFR (African American) 99.4; Est GFR (Non-African American) 85.8; Magnesium 2.4 mg/dl (1.8-2.4); Potassium 3.3 mmol/L (3.5-5.1)
[2020-08-07 19:41] LABS: Albumin Globulin Ratio 1.1 (0.9-2); Bilirubin,Total 0.5 mg/dl (0.2-1); Globulin 3.7 gm/dl (2.5-4.0); Total Protein 7.6 gm/dl (6.4-8.2)
[2020-08-07 19:45] LABS: Pregnancy Test, Serum Negative (Negative)
[2020-08-07 19:49] LABS: Appearance Urine Cloudy (Clear); Bacteria Urine Automated 1+ (Negative); Blood Urine 1+ (Negative); Color Urine Dark Yellow; Epithelial Cell Urine Auto >30 /lpf (0-5); Glucose Urine UA Negative (Negative); Ketones Urine 1+ (Negative); Leukocyte Esterase Urine Negative (Negative); Nitrite Urine Negative (Negative); Protein Urine 1+ (Negative); Specific Gravity Urine 1.025 (1.000-1.030); Urobilinogen Urine Negative (Negative); pH Urine 5.5 (4.5-7.5)
[2020-08-07 19:51] LABS: Basophils # (auto) 0.01 K/uL (0-0.2); Basophils % (auto) 0.2 %; Eosinophils # (auto) 0.03 K/uL (0-0.5); Eosinophils % (auto) 0.7 %; Immature Granulocytes # (auto) 0.01 K/uL (0.00-0.02); Immature Granulocytes % (auto) 0.2 %; Monocytes # (auto) 0.38 K/uL (0.11-0.59); Monocytes % (auto) 8.6 %; Neutrophils # (auto) 1.77 K/uL (1.4-6.5); Neutrophils % (auto) 40.3 %
[2020-08-07] MEDS ORDERED: SODIUM CHLORIDE 0.9% 1000ML 500 ML IV ONE (20:06)
[2020-08-07 20:07] LABS: Bilirubin Urine Negative (Negative); Ictotest Urine Negative (Negative)
[2020-08-07 20:09] LABS: Mucus Urine Present (None Prsent); RBC Urine Automated 0-4 /hpf (0-4)
[2020-08-07] MEDS ORDERED: OPTIRAY 320 100ml IV ONE (20:54)
[2020-08-07 21:58] LABS: Troponin I < 0.015 ng/ml (0-0.045)
--- NOTE | 2020-08-07 23:14 | History & Physical Report ---
Date of Service August 07, 2020 Assessment & Plan (1) Diffuse abdominal pain: 30yo C female with recent diagnosis of Covid-19 on 07/30/20 in outpatient setting presents with persistent abdominal pain, nausea, vomiting, diarrhea and po intolerance. Laboratory evaluation and CT imaging are largely unremarkable. Patient is afebrile, HD stable, NAD. Her abdomen is mildly tender with deep palpation, however, non-surgical with no peritoneal signs. ? persistent GI symptoms secondary to Covid-19 infection - patient has not had any respiratory symptoms during the course of her illness. -Observation to medical, maintain isolation precautions -Oxygenation is adequate on RA with no respiratory distress - currently 97% on RA. No clinical indication for treatment with steroids, Remdesivir -Check Lactate level -IV fluid and electrolyte repletion -Zofran PRN -Phenergan PRN -Floor is requiring repeat Covid testing prior to transfer - will order to be done in ER, however, this will not change placement needs as patient is only 8 days out from her positive outpatient test and is currently having symptoms that may be Covid-19 related therefore she would require isolation regardless. Present on Admission?: Yes (2) Vomiting and diarrhea: As above. Most likely secondary to Covid-19 -Fluid and electrolyte repletion -Zofran and Phenergan as needed -Pepcid 20mg IV daily - although not proven, this may help with abdominal symptoms as well as decrease disease severity Present on Admission?: Yes (3) COVID-19: As above. No respiratory complaints at this time. Patient seems to have predominantly GI symptoms. Adequate oxygenation on room air. CT reports bibasilar groundglass opacities consistent with Covid-19 PNA -Symptomatic management as above -Closely monitor respiratory status F/E/N - LR at 100mL/hr + KCL, K repletion, Clear diet - advance as tolerated Ppx - Lovenox 40 BID - increased risk of DVT in Covid-19 infection Code - Full Dispo - Observation to medical Present on Admission?: Yes History of Present Illness Chief Complaint: nausea, vomiting, diarrhea, abdominal pain Primary Care Provider: Alessandra Gonzalez MD Lissette Shukla is a 30yo C female presenting with nausea/vomiting/diarrhea/abdominal pain ongoing for the last 4-5 days. Patient was diagnosed with Covid-19 on 07/30/20. She felt well up until Tuesday when she developed persistent nausea with multiple episodes of non-bloody emesis, po intolerance. She also has had multiple episodes of watery diarrhea and abdominal pain, most in RLQ. She had a low grade fever for one day at the beginning of her illness but has been afebrile since. Denies CP/cough/SOB/loss of taste or smell. She has not been able to keep down any food or drink for the last 4 days. Her is also Covid+ and was recently hospitalized with SOB. He is now home and doing well. Patient feels slightly improved after the interventions below. Still with some nausea and abdominal pain. ER Course: Promethazine 12.5mg IV x 2 doses, Morphine 4mg, NSS x 1500mL, Morphine 4mg IV, Bendadryl 12.5mg IV, Toradol 15mg IV, Zofran 4mg IV Allergies Allergy/AdvReac Type Severity Reaction Status Date / Time fentanyl Allergy Severe HIVES Verified 08/07/20 18:36 ANAPHYLAXSIS Home Medications Medication Instructions Recorded Confirmed Type levonorgestrel 20 mcg/24 hours (6 1 device IU DAILY 01/04/20 08/07/20 History yrs) 52 mg intrauterine device ondansetron HCl 8 mg tablet 8 mg PO Q8H PRN #30 tab 08/07/20 08/07/20 Rx Past Med/Surg History Medical History Abscess of chest wall Breast mass Chest pain Dysfunctional uterine bleeding Headache associated with sexual activity type 2 Ingrowing toenail Mass of right breast Nostril infection Pain, lower extremity Postcoital bleeding Right shoulder pain Suspected DVT (deep vein thrombosis) Thrush URI (upper respiratory infection) Varicosities of leg Surgical History (System 02/01/20 @ 13:37 by Leda Parham) H/O excision of epidermal inclusion cyst 06/30/17 - Dr Ramos: inflamed epidermal cyst History of dermoid cyst excision 01/26/[address] Ramos - right inner thigh/groin: granulation tissue associated with acute and chronic inflammation including giant cell reaction surrounding follicle consistent with ruptured follicle/cyst S/P cholecystectomy S/P LASIK surgery 2015 S/P tonsillectomy S/P wisdom tooth extraction Family History (System 02/01/20 @ 13:37 by Leda Parham) Grandfather (Maternal) Colorectal cancer Grandfather Diabetes Mother Lung disease Small cell lung cancer. 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 Beliefs That Will Affect Care: None marital status: Current Living Situation: Spouse current occupational status: employed Feels Safe at Home: Yes Childhood Exposure to Second-Hand Smoke: Yes Dental Care, Regularly: Yes Physical Activity Frequency: Daily Seatbelt Use: always Sunscreen Use: Yes Assistive Devices: None Review of Systems Review of Systems: All systems reviewed & are unremarkable except as noted in HPI & below Physical Exam Physical Exam: General: patient resting comfortably, NAD, non-toxic in appearance, AA&O x 4 Skin: warm, dry, intact, no rashes or lesions HEENT: NC/AT, PERRL, EOMI, anicteric sclera, conjunctiva without injection, external ear normal to inspection and nontender, nares patent, dry mucus membranes with black discoloration of tongue, dentition intact, no oropharyngeal lesions, neck supple, trachea midline, no LAD, no thyromegaly, no JVD Heart: +S1/S2, regular, no m/r/g Lungs: equal air entry bilaterally, no rales/rhonchi/wheezes Abd: +BS, soft, mildly tender in lower abdomen with deep palpation without rebound/guarding/peritoneal signs, no masses/organomegaly/ascites Ext: warm, 2+ pulses in UE/LE bilaterally, no clubbing/cyanosis or edema Neuro: nonfocal, patient AA&O x 4, speech intact, no facial droop, moving all extremities on command with equal strength 5/5 Results & Data Results & Data ([facility]) Vital Signs (Past 12 Hours) Vital Signs Temp Pulse Resp BP Pulse Ox 08/07/20 22:30 99/65 L 97 08/07/20 22:00 62 18 104/73 96 08/07/20 21:30 69 16 118/72 95 08/07/20 21:27 72 15 122/65 98 08/07/20 21:10 61 20 135/80 08/07/20 20:30 57 L 17 130/81 100 08/07/20 20:00 61 20 118/66 98 08/07/20 19:55 76 16 110/65 98 08/07/20 19:05 56 L 12 107/66 97 08/07/20 18:18 37 C 76 18 132/90 98 Laboratory Results Lab Results 08/07/20 08/07/20 08/07/20 Range/Units 19:03 19:03 19:03 WBC 4.40 L (4.8-10.8) K/uL RBC 5.08 (4.2-5.4) M/uL Hgb 15.1 (12.0-16.0) g/dL Hct 42.6 (37-47) % MCV 83.9 (80-100) fL MCH 29.7 (25-34) pg MCHC 35.4 (32-36) g/dL RDW Std Deviation 38.1 (36.4-46.3) fL RDW Coeff of [place] 12.6 (11.5-14.5) % Plt Count 196 (130-400) K/uL MPV 9.5 (7.4-10.4) fL Immature Gran % (Auto) 0.2 % Neut % (Auto) 40.3 % Lymph % (Auto) 50.0 % Cloud % (Auto) 8.6 % Eos % (Auto) 0.7 % Baso % (Auto) 0.2 % Neut # (Auto) 1.77 (1.4-6.5) K/uL Lymph # (Auto) 2.20 (1.2-3.4) K/uL Cloud # (Auto) 0.38 (0.11-0.59) K/uL Eos # (Auto) 0.03 (0-0.5) K/uL Baso # (Auto) 0.01 (0-0.2) K/uL Immature Gran # (Auto) 0.01 (0.00-0.02) K/uL Sodium 140 (136-145) mmol/L Potassium 3.3 L (3.5-5.1) mmol/L Chloride 107 (98-107) mmol/L Carbon Dioxide 27 (21-32) mmol/L Anion Gap 6.0 (3-11) BUN 11 (7-18) mg/dl Creatinine 0.90 (0.6-1.2) mg/dl Est Cr Clr Drug Dosing 86.7 ml/min Est GFR ( Amer) 99.4 Est GFR (Non-Af Amer) 85.8 BUN/Creatinine Ratio 12.2 (10-20) Glucose 101 H (70-99) mg/dl Calcium 8.6 (8.5-10.1) mg/dl Magnesium 2.4 (1.8-2.4) mg/dl Total Bilirubin 0.5 (0.2-1) mg/dl AST 29 (15-37) U/L ALT 56 (12-78) U/L Alkaline Phosphatase 88 (45-117) U/L Troponin I (0-0.045) ng/ml Total Protein 7.6 (6.4-8.2) gm/dl Albumin 3.9 (3.4-5.0) gm/dl Globulin 3.7 (2.5-4.0) gm/dl Albumin/Globulin Ratio 1.1 (0.9-2) Lipase 132 (73-393) U/L HCG, Qual Negative (Negative) Urine Color Urine Appearance (Clear) Urine pH (4.5-7.5) Ur Specific [place] (1.000-1.030) Urine Protein (Negative) Urine Glucose (UA) (Negative) Urine Ketones (Negative) Urine Blood (Negative) Urine Nitrite (Negative) Urine Bilirubin (Negative) Urine Urobilinogen (Negative) Ur Leukocyte Esterase (Negative) Urine WBC (Auto) (0-5) /hpf Urine RBC (Auto) (0-4) /hpf U Hyaline Cast (Auto) (0-5) /lpf U Epithel Cells (Auto) (0-5) /lpf Urine Bacteria (Auto) (Negative) Ur Renal Epithelial Cell Urine Mucus (None Prsent) 08/07/20 08/07/20 Range/Units 19:03 19:03 WBC (4.8-10.8) K/uL RBC (4.2-5.4) M/uL Hgb (12.0-16.0) g/dL Hct (37-47) % MCV (80-100) fL MCH (25-34) pg MCHC (32-36) g/dL RDW Std Deviation (36.4-46.3) fL RDW Coeff of [place] (11.5-14.5) % Plt Count (130-400) K/uL MPV (7.4-10.4) fL Immature Gran % (Auto) % Neut % (Auto) % Lymph % (Auto) % Cloud % (Auto) % Eos % (Auto) % Baso % (Auto) % Neut # (Auto) (1.4-6.5) K/uL Lymph # (Auto) (1.2-3.4) K/uL Cloud # (Auto) (0.11-0.59) K/uL Eos # (Auto) (0-0.5) K/uL Baso # (Auto) (0-0.2) K/uL Immature Gran # (Auto) (0.00-0.02) K/uL Sodium (136-145) mmol/L Potassium (3.5-5.1) mmol/L Chloride (98-107) mmol/L Carbon Dioxide (21-32) mmol/L Anion Gap (3-11) BUN (7-18) mg/dl Creatinine (0.6-1.2) mg/dl Est Cr Clr Drug Dosing ml/min Est GFR ( Amer) Est GFR (Non-Af Amer) BUN/Creatinine Ratio (10-20) Glucose (70-99) mg/dl Calcium (8.5-10.1) mg/dl Magnesium (1.8-2.4) mg/dl Total Bilirubin (0.2-1) mg/dl AST (15-37) U/L ALT (12-78) U/L Alkaline Phosphatase (45-117) U/L Troponin I < 0.015 (0-0.045) ng/ml Total Protein (6.4-8.2) gm/dl Albumin (3.4-5.0) gm/dl Globulin (2.5-4.0) gm/dl Albumin/Globulin Ratio (0.9-2) Lipase (73-393) U/L HCG, Qual (Negative) Urine Color Dark Yellow Urine Appearance Cloudy A (Clear) Urine pH 5.5 (4.5-7.5) Ur Specific [place] 1.025 (1.000-1.030) Urine Protein 1+ H (Negative) Urine Glucose (UA) Negative (Negative) Urine Ketones 1+ H (Negative) Urine Blood 1+ H (Negative) Urine Nitrite Negative (Negative) Urine Bilirubin Negative (Negative) Urine Urobilinogen Negative (Negative) Ur Leukocyte Esterase Negative (Negative) Urine WBC (Auto) 10-30 H (0-5) /hpf Urine RBC (Auto) 0-4 (0-4) /hpf U Hyaline Cast (Auto) 1-5 (0-5) /lpf U Epithel Cells (Auto) >30 H (0-5) /lpf Urine Bacteria (Auto) 1+ H (Negative) Ur Renal Epithelial Cell Not Reportable Urine Mucus Present A (None Prsent) Diagnostic Findings CT Abdomen and Pelvis with Contrast: Per STAT-rad - Compared to CT abdomen and pelvis and gallbladder US of 01/05/20. Lower lobe airspace infiltrates suggesting coronavirus pneumonia in this clinical setting. Interval cholecystectomy. No biliary ductal dilation. No GI or urinary tract obstruction. Unremarkable appendix. Intrauterine device. ECG Additional Comments: EKG with NSR at 60, normal axis, RJ=704, QRS=92, PLk=518, no acute ischemic changes Code Status & VTE Plan VTE Prophylaxis Plan VTE Prophylaxis will be ordered: Yes PG Care Time/CCT Total # of Minutes Spent Total Time Spent with Patient: Total time spent is greater than 50% in coordination of care (as documented) at patient's floor/unit and/or counseling patient: Coding Level of Care Code 31427 OBS Care - Level 2 Diagnoses Diffuse abdominal pain R10.84 Vomiting and diarrhea R11.10; R19.7 COVID-19 U07.1
[2020-08-08] MEDS ORDERED: PROMETHAZINE HCL 6.25 MG in SODIUM CHLORIDE 0.9% 50 ML IV PRN (02:10)
[2020-08-08] MEDS: POTASSIUM CHLORIDE 20 MEQ in LACTATED RINGER'S 1,000 ML IV SCH ×2 (03:28→15:01)
[2020-08-08] MEDS: ENOXAPARIN INJ 40 MG/0.4 ML SYR SQ SCH ×2 (03:28→20:42)
[2020-08-08 03:32] LABS: Phosphorus 2.4 mg/dl (2.5-4.9)
--- NOTE | 2020-08-08 08:02 | XRay Report ---
XR chest 1V portable CLINICAL HISTORY: covid, pain COMPARISON STUDY: Chest radiograph and chest CT August 10, 2014. FINDINGS: Lung volumes are normal. Lungs are clear. There is no pneumothorax or pleural effusion. Car diac size is normal. Mediastinal contours are normal. There is no evidence for pulmonary edema. IMPRESSION: No acute cardiopulmonary findings. ACT 112: Negative or not required by law. Electronically signed by: Ambrocio Gonzalez M.D. 08/08/2020 8:01 AM
--- NOTE | 2020-08-08 08:22 | CT Scan Report ---
CT OF THE ABDOMEN AND PELVIS WITH CONTRAST CLINICAL HISTORY: nvd, abd pain COMPARISON STUDY: CT of the abdomen and pelvis and right upper quadrant ultrasound January 05, 2012. TECHNIQUE: Following IV administration of 93 mL of Optiray-320, axial images of the abdomen and pelvi s were obtained from the lung bases to the proximal femurs. Images were reviewed in the axial, sagitt al, and coronal planes. IV contrast was administered without complication. Automated exposure contro l was utilized for the study. A dose lowering technique was utilized adhering to the principles of A [place]. CT DOSE: 884.58 mGycm FINDINGS: Visualized portions of the lower chest demonstrate multifocal groundglass opacities. No pne umatosis, free air or portal venous gas is present. The gallbladder is surgically absent. There is no significant biliary ductal dilatation. The spleen, adrenal glands, kidneys and pancreas are normal. There is no evidence for a bowel obstruction. The appendix is normal. Intrauterine device is in place . The ovaries are not enlarged. There is no lymphadenopathy or ascites. Major vasculature is patent. There are no suspicious osseous lesions or acute fractures within visualized skeletal structures. IMPRESSION: 1. Multifocal groundglass opacities within the lower lungs consistent with viral pneumonia. 2. No acute process within the abdomen or pelvis. 2. Intrauterine device in place. ACT 112: Negative or not required by law. Electronically signed by: Ambrocio Gonzalez M.D. 08/08/2020 8:20 AM
[2020-08-08] MEDS: FAMOTIDINE 20 MG in SYRINGE 3 ML IV SCH (08:48)
[2020-08-08] MEDS: ONDANSETRON INJ 2 MG/ML 2 ML VIAL IV PRN ×2 (08:48→21:14)
--- NOTE | 2020-08-08 20:32 | Hospitalist Progress Note ---
Date of Service August 08, 2020 Assessment & Plan (1) Diffuse abdominal pain: 30yo C female with recent diagnosis of Covid-19 on 07/30/20 in outpatient setting presents with persistent abdominal pain, nausea, vomiting, diarrhea and po intolerance. Laboratory evaluation and CT imaging are largely unremarkable except bibasilar opacities consistent with pneumonia seen on CT abdomen/pelvis. Patient is afebrile, HD stable, NAD. Her abdomen is mildly tender with deep palpation, however, non-surgical with no peritoneal signs. This is persistent GI symptoms secondary to Covid-19 infection - patient has not had any respiratory symptoms during the course of her illness. Lactate was normal -She is much improved today with no further nausea or vomiting. She is tolerating clear liquids diet. Still having some diarrhea. Abdominal pain is now resolved -Continue IV fluids with potassium for electrolyte replacement Follow BMP in the morning as well as magnesium and phosphorus -Oxygenation is adequate on RA with no respiratory distress - currently 97% on RA. No clinical indication for treatment with steroids, Remdesivir -Zofran PRN -Phenergan PRN -Her Covid test was repeated prior to arrival on the floor and was negative, however she will remain on airborne and contact precautions for Covid-19 as she is still symptomatic -Advance diet to low fiber (2) Vomiting and diarrhea: As above. Most likely secondary to Covid-19 -Continue IV Pepcid (3) Hypokalemia: Potassium mildly low secondary to GI losses Replacing potassium chloride and IV fluids maintenance Follow BMP in the morning (4) COVID-19: As above. No respiratory complaints at this time. Patient seems to have predominantly GI symptoms. Adequate oxygenation on room air. CT reports bibasil ar groundglass opacities consistent with Covid-19 PNA -Symptomatic management as above -Closely monitor respiratory status F/E/N -continue LR at 100mL/hr + KCL, K repletion, advancing diet to low fiber Ppx - Lovenox 40 BID - increased risk of DVT in Covid-19 infection as well as a history of varicose veins with superficial thrombophlebitis Code - Full Dispo -continued stay, but likely discharge to home on 08/09 Admission and Anticipated Discharge Date Admission Date: August 08, 2020 Subjective Patient feeling better today, nausea has improved, no further abdominal pain. Has had 2 loose stools. Denies chest pain or shortness of breath, denies cough. Remains afebrile. Reports she thinks she is ready to try some low fiber food. She does not think she is ready to go home yet as she tends to get more nauseated in the morning and wants to see how she does in the morning again before she goes. Review of Systems Review of Systems: All systems reviewed & are unremarkable except as noted in HPI & below Physical Exam Constitutional: WD/WN, vitals as above Eyes: + anicteric sclerae ENMT: external ear and nose normal, oropharynx normal Neck: trachea midline, no thyromegaly Respiratory: normal respiratory effort, lungs clear to auscultation Cardiovascular: RRR, no murmur, no edema Chest (Breasts): Chest: normal inspection of chest Gastrointestinal (Abdomen): normal bowel sounds, soft, nontender, no hepatosplenomegaly Musculoskeletal: Extremities: extremities normal to inspection; no cyanosis and no clubbing Skin: no rashes, warm and dry Neurologic: moves all extremities and awake; no focal motor deficits Psychiatric: A+Ox3, euthymic affect Lymphatic: no lymphedema Results & Data Results & Data ([facility]) Vital Signs (Past 12 Hours) Vital Signs Temp Pulse Resp BP Pulse Ox 08/08/20 17:07 37.0 C 63 16 118/74 97 Laboratory Results 08/08/20 08/08/20 08/07/20 Range/Units Unknown 03:47 19:03 Lactate 0.8 (0.4-2.0) mmol/L Phosphorus 2.4 L Troponin I < 0.015 (0-0.045) ng/ml SARS-CoV-2 Ag (Rapid) Negative (Negative) 08/07/20 Range/Units 19:03 Lactate (0.4-2.0) mmol/L Phosphorus Cancelled Troponin I (0-0.045) ng/ml SARS-CoV-2 Ag (Rapid) (Negative) PG Care Time/CCT Total # of Minutes Spent Total Time Spent with Patient: Total time spent is greater than 50% in coordination of care (as documented) at patient's floor/unit and/or counseling patient: Coding Level of Care Code 33800 Subseq Hosp Care Lvl 2 Diagnoses Diffuse abdominal pain R10.84 Vomiting and diarrhea R11.10; R19.7 Hypokalemia E87.6 COVID-19 U07.1
[2020-08-09] MEDS ORDERED: ACETAMINOPHEN 325 MG TAB PO PRN (01:10)
[2020-08-09] MEDS: ENOXAPARIN INJ 40 MG/0.4 ML SYR SQ SCH ×2 (05:38→17:23)
--- NOTE | 2020-08-09 06:01 | Electrocardiogram Report ---
Test Reason : Blood Pressure : / mmHG Vent. Rate : 060 BPM Atrial Rate : 060 BPM P-R Int : 128 ms QRS Dur : 092 ms QT Int : 426 ms P-R-T Axes : 017 -09 016 degrees QTc Int : 426 ms Normal sinus rhythm Nonspecific T wave abnormality Abnormal ECG When compared with ECG of 10-AUG-2014 13:46, Nonspecific T wave abnormality now evident in Anterolateral leads Confirmed by Carlos Simmons ([id number]) on 08/09/2020 6:00:40 AM Referred By: REFERRED SELF Confirmed By:Carlos Simmons
[2020-08-09 06:37] LABS: Hematocrit (blood only) 37.9 % (37-47); Hemoglobin 13.1 g/dL (12.0-16.0); Mean Corpuscular Hgb Conc 34.6 g/dL (32-36); Mean Corpuscular Volume 83.8 fL (80-100); Mean Platelet Volume 9.4 fL (7.4-10.4); Platelet Count 174 K/uL (130-400); RDW Coefficient of Variation 12.6 % (11.5-14.5); RDW Standard Deviation 38.5 fL (36.4-46.3); Red Blood Count 4.52 M/uL (4.2-5.4); White Blood Count 4.45 K/uL (4.8-10.8)
[2020-08-09 07:11] LABS: Albumin Level 3.1 gm/dl (3.4-5.0); BUN Creatinine Ratio 13.3 (10-20); Calcium 7.9 mg/dl (8.5-10.1); Creatinine Clr Calc Pharmacy 129.4 ml/min; Est GFR (African American) 135.4; Est GFR (Non-African American) 116.8; Magnesium 2.1 mg/dl (1.8-2.4); Potassium 3.6 mmol/L (3.5-5.1)
[2020-08-09 07:13] LABS: Basophils # (auto) 0.01 K/uL (0-0.2); Basophils % (auto) 0.2 %; Eosinophils # (auto) 0.06 K/uL (0-0.5); Eosinophils % (auto) 1.3 %; Lymphocytes # (auto) 2.98 K/uL (1.2-3.4); Monocytes # (auto) 0.26 K/uL (0.11-0.59); Monocytes % (auto) 5.8 %; Neutrophils # (auto) 1.14 K/uL (1.4-6.5); Neutrophils % (auto) 25.7 %; RBC Morphology Unremarkable
[2020-08-09 07:19] LABS: Bilirubin,Total 0.5 mg/dl (0.2-1); Globulin 3.1 gm/dl (2.5-4.0); Phosphorus 2.3 mg/dl (2.5-4.9); Total Protein 6.2 gm/dl (6.4-8.2)
[2020-08-09] MEDS: ONDANSETRON INJ 2 MG/ML 2 ML VIAL IV PRN (08:38)
[2020-08-09] MEDS ORDERED: PROMETHAZINE HCL 12.5 MG in SODIUM CHLORIDE 0.9% 50 ML IV PRN (09:30)
[2020-08-09] MEDS: FAMOTIDINE 20 MG in SYRINGE 3 ML IV SCH (09:36)
[2020-08-09] MEDS: POT PHOSPHATE MONOBASIC W/ SOD TAB PO SCH ×4 (09:36→21:49)
--- NOTE | 2020-08-09 09:38 | Hospitalist Progress Note ---
Date of Service August 09, 2020 Assessment & Plan (1) Diffuse abdominal pain: 30yo C female with recent diagnosis of Covid-19 on 07/30/20 in outpatient setting presents with persistent abdominal pain, nausea, vomiting, diarrhea and po intolerance. Laboratory evaluation and CT imaging are largely unremarkable except bibasilar opacities consistent with pneumonia seen on CT abdomen/pelvis. Patient is afebrile, HD stable, NAD. Her abdomen is mildly tender with deep palpation, however, non-surgical with no peritoneal signs. This is persistent GI symptoms secondary to Covid-19 infection - patient has not had any respiratory symptoms during the course of her illness. Lactate was normal nausea is intense today, did not eat breakfast will increase Phenergan to 12.5mg q6, add 4 doses of Reglan q6, continue Zofran PRN add back NSS + 20KCl at 125cc/hr repeat labs tomorrow encourage PO intake, want her eating/drinking better prior to going home -Her Covid test was repeated prior to arrival on the floor and was negative, however she will remain on airborne and contact precautions for Covid-19 as she is still symptomatic -Advance diet to low fiber (2) Vomiting and diarrhea: As above. Most likely secondary to Covid-19 -Continue IV Pepcid, Phenergan, Zofran give four doses of Reglan q6 (3) Hypokalemia: Potassium mildly low secondary to GI losses K is 3.6 today, low normal will give NSS + 20KCl in fluids at 125cc/hr (4) COVID-19: As above. No respiratory complaints at this time. Patient seems to have predominantly GI symptoms. Adequate oxygenation on room air. CT reports bibasilar groundglass opacities consistent with Covid-19 PNA -Symptomatic management as above -Closely monitor respiratory status F/E/N - NSS + 20KCl 125cc/hr Ppx - Lovenox 40 BID Code - Full Dispo -continued stay, try to discharge tomorrow if feeling better Admission and Anticipated Discharge Date Admission Date: August 08, 2020 Subjective patient still feels nauseated, could not eat breakfast, she says the nausea is intense had some diarrhea this morning, no abdominal pain no fever, no chills but she is diaphoretic denies any dyspnea or cough she will stay here today, resume IV fluids since not drinking well checked labs, Cr and BUN normal, electrolytes stable, specifically K 3.6 Review of Systems Review of Systems: All systems reviewed & are unremarkable except as noted in Subjective Constitutional: + sweats Respiratory: no cough and no dyspnea Gastrointestinal: + nausea, + vomiting and + diarrhea/loose stools; no abdominal pain and no constipation Physical Exam Constitutional: WD/WN, vitals as above + diaphoretic; no acute distress Neck: trachea midline, no thyromegaly Respiratory: normal respiratory effort, lungs clear to auscultation Cardiovascular: RRR, no murmur, no edema Gastrointestinal (Abdomen): normal bowel sounds, soft, nontender, no hepatosplenomegaly Musculoskeletal: no cyanosis or clubbing, extremities motor strength 5/5 Skin: no rashes, warm and dry Neurologic: patellar DTR's 2+ bilat, sensation intact and PERRL, EOMI, accommodation nl, no face palsy, no dysarthria Psychiatric: A+Ox3, euthymic affect Lymphatic: no cervical or axillary lymphadenopathy Results & Data Results & Data ([facility]) Vital Signs (Past 12 Hours) Vital Signs Temp Pulse Resp BP Pulse Ox 08/09/20 07:56 36.7 C 58 L 16 107/65 96 08/09/20 07:36 36.6 C 56 L 104/67 96 Laboratory Results Laboratory Results - last 24 hr 08/09/20 08/09/20 06:19 06:19 WBC 4.45 L RBC 4.52 Hgb 13.1 Hct 37.9 MCV 83.8 MCH 29.0 MCHC 34.6 RDW Std Deviation 38.5 RDW Coeff of Mars 12.6 Plt Count 174 MPV 9.4 Immature Gran % (Auto) 0.0 Neut % (Auto) 25.7 Lymph % (Auto) 67.0 Forest % (Auto) 5.8 Eos % (Auto) 1.3 Baso % (Auto) 0.2 Neut # (Auto) 1.14 L Lymph # (Auto) 2.98 Forest # (Auto) 0.26 Eos # (Auto) 0.06 Baso # (Auto) 0.01 Immature Gran # (Auto) 0.00 RBC Morphology Unremarkable Sodium 143 Potassium 3.6 Chloride 113 H Carbon Dioxide 23 Anion Gap 7.0 BUN 9 Creatinine 0.69 Est Cr Clr Drug Dosing 129.4 Est GFR ( Amer) 135.4 Est GFR (Non-Af Amer) 116.8 BUN/Creatinine Ratio 13.3 Glucose 79 Calcium 7.9 L Phosphorus 2.3 L Magnesium 2.1 Total Bilirubin 0.5 AST 17 ALT 38 Alkaline Phosphatase 71 Total Protein 6.2 L Albumin 3.1 L Globulin 3.1 Albumin/Globulin Ratio 1.0 Medications Administered Current Inpatient Medications Acetaminophen (Acetaminophen 325 Mg Tab) 650 mg PO Q4H PRN PRN Reason: pain/headache Stop: 09/08/20 01:09 Last Admin: 08/09/20 01:25 Dose: 650 mg Documented by: Enoxaparin Sodium (Enoxaparin Inj 40 Mg/0.4 Ml Syr) 40 mg SQ Q12H [facility] Stop: 09/07/20 03:14 Last Admin: 08/09/20 05:38 Dose: 40 mg Documented by: Famotidine 20 mg/ Syringe 5 mls @ 2.5 mls/min IV DAILY [facility] Stop: 09/07/20 08:59 Last Admin: 08/08/20 08:48 Dose: 2.5 mls/min Documented by: Potassium Chloride/Sodium Chloride (Normal Saline W/20 Meq Kcl) 20 meq in 1,000 mls @ 125 mls/hr IV .Q8H [place] Stop: 09/08/20 09:29 Promethazine HCl 12.5 mg/ (Sodium Chloride) 50.5 mls @ 201 mls/hr IV Q6H PRN PRN Reason: Nausea And Vomiting Stop: 09/07/20 02:09 Metoclopramide HCl (Metoclopramide Hcl Inj 5 Mg/Ml 2 Ml Vial) 10 mg IV Q6H [facility] Stop: 08/10/20 03:31 Ondansetron HCl (Ondansetron Inj 2 Mg/Ml 2 Ml Vial) 4 mg IV Q6H PRN PRN Reason: Nausea Stop: 09/07/20 02:09 Last Admin: 08/09/20 08:38 Dose: 4 mg Documented by: Potassium Phosphate (Pot Phosphate Monobasic W/ Sod Tab) 1 tab PO QID [facility] Stop: 09/08/20 08:59 PG Care Time/CCT Total # of Minutes Spent Total Time Spent with Patient: Total time spent is greater than 50% in procurement cost coordinator rdination of care (as documented) at patient's floor/unit and/or counseling patient: Coding Level of Care Code 84741 Subseq Hosp Care Lvl 2 Diagnoses Diffuse abdominal pain R10.84 Vomiting and diarrhea R11.10; R19.7 Hypokalemia E87.6 COVID-19 U07.1
[2020-08-09] MEDS ORDERED: METOCLOPRAMIDE HCL INJ 5 MG/ML 2 ML VIAL ONE (09:44)
[2020-08-09] MEDS: METOCLOPRAMIDE HCL INJ 5 MG/ML 2 ML VIAL IV SCH ×3 (09:46→21:50)
[2020-08-09] MEDS: NSS + 20MEQ KCL 20 MEQ/1,000 ML BAG IV SCH ×2 (10:29→17:23)
[2020-08-10] MEDS ORDERED: diphenhydrAMINE Capsule 25 MG CAP PO ONE (00:39)
[2020-08-10] MEDS: NSS + 20MEQ KCL 20 MEQ/1,000 ML BAG IV SCH ×2 (01:17→08:51)
[2020-08-10] MEDS: METOCLOPRAMIDE HCL INJ 5 MG/ML 2 ML VIAL IV SCH (04:05)
[2020-08-10] MEDS: ENOXAPARIN INJ 40 MG/0.4 ML SYR SQ SCH (06:23)
[2020-08-10] MEDS: FAMOTIDINE 20 MG in SYRINGE 3 ML IV SCH (08:50)
[2020-08-10] MEDS: POT PHOSPHATE MONOBASIC W/ SOD TAB PO SCH (08:51)
[2020-08-10] MEDS: ONDANSETRON INJ 2 MG/ML 2 ML VIAL IV PRN (08:51)
[2020-08-10 08:56] LABS: Hematocrit (blood only) 37.6 % (37-47); Hemoglobin 13.5 g/dL (12.0-16.0); Mean Corpuscular Hemoglobin 29.4 pg (25-34); Mean Corpuscular Hgb Conc 35.9 g/dL (32-36); Mean Corpuscular Volume 81.9 fL (80-100); Mean Platelet Volume 9.4 fL (7.4-10.4); Platelet Count 205 K/uL (130-400); RDW Coefficient of Variation 12.3 % (11.5-14.5); RDW Standard Deviation 36.8 fL (36.4-46.3); Red Blood Count 4.59 M/uL (4.2-5.4); White Blood Count 4.73 K/uL (4.8-10.8)
[2020-08-10 09:17] LABS: BUN Creatinine Ratio 5.4 (10-20); Calcium 8.3 mg/dl (8.5-10.1); Creatinine Clr Calc Pharmacy 137.4 ml/min; Est GFR (African American) 138.1; Est GFR (Non-African American) 119.1; Potassium 3.9 mmol/L (3.5-5.1)
[2020-08-10 09:31] LABS: Basophils # (auto) 0.01 K/uL (0-0.2); Basophils % (auto) 0.2 %; Eosinophils # (auto) 0.06 K/uL (0-0.5); Eosinophils % (auto) 1.3 %; Immature Granulocytes # (auto) 0.01 K/uL (0.00-0.02); Immature Granulocytes % (auto) 0.2 %; Lymphocytes # (auto) 2.56 K/uL (1.2-3.4); Lymphocytes % (auto) 54.1 %; Monocytes # (auto) 0.26 K/uL (0.11-0.59); Monocytes % (auto) 5.5 %; Neutrophils # (auto) 1.83 K/uL (1.4-6.5); Neutrophils % (auto) 38.7 %
--- NOTE | 2020-08-10 11:12 | Discharge Summary ---
Date of Service August 10, 2020 Admission HPI Per Admitting Provider Lissette Shukla is a 30yo C female presenting with nausea/vomiting/diarrhea/abdominal pain ongoing for the last 4-5 days. Patient was diagnosed with Covid-19 on 07/30/20. She felt well up until Tuesday when she developed persistent nausea with multiple episodes of non-bloody emesis, po intolerance. She also has had multiple episodes of watery diarrhea and abdominal pain, most in RLQ. She had a low grade fever for one day at the beginning of her illness but has been afebrile since. Denies CP/cough/SOB/loss of taste or smell. She has not been able to keep down any food or drink for the last 4 days. Her is also Covid+ and was recently hospitalized with SOB. He is now home and doing well. Patient feels slightly improved after the interventions below. Still with some nausea and abdominal pain. ER Course: Promethazine 12.5mg IV x 2 doses, Morphine 4mg, NSS x 1500mL, Morphine 4mg IV, Bendadryl 12.5mg IV, Toradol 15mg IV, Zofran 4mg IV Principal Diagnosis COVID infection Discharge Exam Constitutional WD/WN, vitals as above Respiratory normal respiratory effort, lungs clear to auscultation Cardiovascular RRR, no murmur, no edema Gastrointestinal (Abdomen) normal bowel sounds, soft, nontender, no hepatosplenomegaly Musculoskeletal no cyanosis or clubbing, extremities motor strength 5/5 Skin no rashes, warm and dry Neurologic moves all extremities and awake Psychiatric A+Ox3, euthymic affect Discharge Data Allergies Allergy/AdvReac Type Severity Reaction Status Date / Time fentanyl Allergy Severe HIVES Verified 08/07/20 18:36 ANAPHYLAXSIS Consultations 08/07/20 22:30 ED Decision to Admit Stat Ordered Studies 08/07/20 20:34 CT abd pelvis IV con only Urgent Hospital Course (1) Diffuse abdominal pain: 30yo C female with recent diagnosis of Covid-19 on 07/30/20 in outpatient setting presents with persistent abdominal pain, nausea, vomiting, diarrhea and po intolerance. Laboratory evaluation and CT imaging are largely unremarkable except bibasilar opacities consistent with pneumonia seen on CT abdomen/pelvis. Patient is afebrile, HD stable, NAD. Her abdomen is mildly tender with deep palpation, however, non-surgical with no peritoneal signs. This is persistent GI symptoms secondary to Covid-19 infection - patient has not had any respiratory symptoms during the course of her illness. Lactate was normal nausea improved over last night and today and patient is eating well. -Her Covid test was repeated prior to arrival on the floor and was negative, however she remained on airborne and contact precautions for Covid-19 while inpatient as she was still symptomatic. Per CDC guidelines: For most persons with COVID-19 illness, isolation and precautions can generally be discontinued 10 days after symptom onset and resolution of fever for at least 24 hours, without the use of fever-reducing medications, and with improvement of other symptoms. - Patient is 12 days out and had a negative test 08/08 and resolution of symptoms at this point so does not need further quarantine at discharge -Advance diet as tolerated (2) Vomiting and diarrhea: Resolved (3) Hypokalemia: Potassium mildly low secondary to GI losses K is 3.9 today (4) Electrocardiogram showing T wave abnormalities: Non specific T wave abnormality in anterolateral leads on EKG 08/07. No ischemic symptoms. Troponin was normal. Would have patient follow with pcp (5) COVID-19: As above. No respiratory complaints at this time. Patient seems to have predominantly GI symptoms. Adequate oxygenation on room air. CT reports bibasilar groundglass opacities consistent with Covid-19 PNA Total Time Total Time Spent Total Time Spent (In Minutes): greater than 30 minutes Discharge Plan Discharge Items Patient Disposition: Home - Self-Care Reason For Visit: ABD PAIN, NAUSEA, VOMITING, COVID-19 Discharge Diagnosis: Nausea, vomiting, COVID-19 Condition on Discharge: Fair Activity: Resume your previous activity Activity Comment: gradually as tolerated Non-emergency contact: Primary Care Provider Call non-emergency contact if: you have any medication questions and your symptoms worsen Follow-up/Referrals: Alessandra Gonzalez MD [Primary Care Provider] - (follow up one week ) Diet: Regular Addtl Attending Provider Instructions: (1) Diffuse abdominal pain: You can advance your diet as tolerated. The CT of your abdomen did not show any acute changes other than pneumonia (due to COVID) in the base of your lung. You can continue to use Zofran (ondansetron) at home for nausea as needed. Pending Studies at Discharge: No Stand-Alone Forms: [facility] [employer], Smoking Cessation Medications and DC Order Prescriptions: Continued ondansetron HCl 8 mg tablet 8 mg PO Q8H PRN (Reason: nausea and vomiting) Qty: 30 RF: 1 Mirena 20 mcg/24 hours (5 yrs) 52 mg intrauterine device 1 device IU DAILY RF: 0 Discharge Orders: Discharge Order (Routine); Ordered 08/10/20 Ordered By: Coleen Hernandez/Other Patient Handouts: COVID-19 Home Care, ED Dehydration (Adult) Admission Data Admit Date/Time: 08/09/20 09:38 Attending Provider: Ketan Medina Admit Provider: Mahsa Guerrier Primary Care Provider: Alessandra Gonzalez Other Providers: Mahsa Guerrier Other Interventions: Discharge Summary Assessment (RN) Last Done: 08/10/20 11:19 Supervising Physician Co-Signing Physician Notes Patient seen and examined on the day of discharge. I agree with the discharge summary by Coleen AWAN. I have reviewed the chart including labs, imaging and plans for discharge. patient feeling better, no nausea, tolerating diet no diarrhea, she is euvolemic - COVID 19 infection causing vomiting, diarrhea symptoms resolving, tolerating diet will send home with Zofran to use PRN no evidence of COVID pneumonia Coding Level of Care Code D/C Day Management >30 mins Diagnoses Diffuse abdominal pain R10.84 Vomiting and diarrhea R11.10; R19.7 Hypokalemia E87.6 Electrocardiogram showing T wave abnormalities R94.31 COVID-19 U07.1
--- NOTE | 2020-08-12 07:55 | Coding Query ---
CODING QUERY To promote full compliance with coding requirements relating to patient care, provider participation is requested in all cases of remote coders uncertainty. Please assist us with the question(s) below: Coding Question(s): COVID-19 PNA is documented throughout account but on Discharge, you documented "no evidence of COVID Pneumonia." Please clarify below: ( x) Patient had (possible) COVID-19 Pneumonia she was never hypoxemic, however she did have changes on CXR ( ) COVID-19 Pneumonia Ruled Out ( ) Other Please Explain: Thank you Wesley Armendariz Principal Diagnosis: "that condition established after study, to be chiefly responsible for occasioning the admission of the patient to the hospital for care." Co-Existing Principal Diagnosis: "when two or more diagnoses equally meet the criteria for principal diagnosis as determined by the circumstances of admission, diagnostic work up, and/or therapy provided, and the Alphabetic Index, Tabular List, or another coding guideline does not provide sequencing direction, any one of the diagnoses may be sequenced first." "When the physician has documented what appears to be a current diagnosis in the body of the record, but has not included the diagnosis in the final diagnostic statement, the physician should be asked whether the diagnosis should be added." (Source Coding Clinic 2 QTR90. p3-4) JACKELYN
== END 2020-08-10 12:41 | disposition home or self-care (01) ==
LOC: 3W 18:15 → ED 18:15 → SUATTDRO 08-08 → 3W 08-08 00:13

== ENCOUNTER 2024-02-09 11:19 | Inpatient (IN) ==
[2024-02-09] MEDS ORDERED: LIDOCAINE 1% LOCAL 20 ML VIAL INFIL PRN (11:28)
--- NOTE | 2024-02-09 11:49 | History & Physical Report ---
Date of Service February 09, 2024 Assessment & Plan (1) Encounter for induction of labor: Plan 33 y/o female at 39w 5d, here for IOL: Rios bulb Pitocin AROM as indicated Epidural prn. Monitor heart tracings, category 1. Admission and Anticipated Discharge Date Admission Date: February 09, 2024 History of Present Illness Primary Care Provider: Alessandra Gonzalez MD 33 y/o female currently at 39w 5d with an NOREEN 02/11/24 as determined by LMP, who is here for IOL. 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 + movement denies Fluid loss denies Vaginal bleeding External FHT and external uterine monitors used: Category 1 tracing, baseline rate 135, moderate variability, irregular contractions OB Labs: Blood Type B Positive 07/05/23 Antibody Screen NEGATIVE 07/05/23 Hemoglobin 11.5 g/dl (12.0-16.0) L 11/22/23 Hematocrit 35.0 % (37.0-47.0) L 11/22/23 Mean Corpuscular Volume 87.0 fL (80.0-100.0) 11/12/23 Platelet Count 231 K/uL (130-400) 11/12/23 Rubella IgG Antibody Immune (Immune) 07/05/23 Rapid Plasma Reagin Nonreactive (Nonreactive) 07/05/23 Hepatitis B Surface Antigen Neg (Neg) 01/23/19 Hepatitis B Surface Antigen. NON-REACTIVE (NON-REACTIVE) 07/05/23 Hepatitis C Antibody (EIA) NON-REACTIVE (NON-REACTIVE) 07/05/23 HIV (1&2) Ab and P24 Ag, 4th Gener Neg (Neg) 01/23/19 HIV (1&2) Ag and Ab Confirmation NON-REACTIVE (NON-REACTIVE) 07/05/23 Glucose 1 Hour 50 gm Load 180 mg/dl (70-130) H 08/30/23 Maternal Serum Alpha Fetoprotein 23.3 ng/mL 08/30/23 OB Optional Labs: Chlamydia trachomatis RNA Not Detected (NotDetected) 07/05/23 Neisseria gonorrhoeae RNA Not Detected (NotDetected) 07/05/23 Alpha Fetoprotein Triple Screen SEE NOTE 08/30/23 Labs Reviewed: urine cx done 06/20 contam. Horizon 14-negative--mln cfdna-low risk--mln afp neg--akh Allergies Allergy/AdvReac Type Severity Reaction Status Date / Time fentanyl Allergy Severe Anaphylaxis Verified 02/09/24 11:36 Home Medications Medication Instructions Recorded Confirmed Type vit no.95-ferrous 1 tab PO DAILY 06/20/23 02/09/24 History fumarate 28 mg-folic acid 800 mcg tablet () acetone (urine) test (Ketone Urine #50 ea 09/22/23 02/07/24 Rx Test strips) blood sugar diagnostic (OneTouch #150 ea 09/22/23 02/07/24 Rx Verio test strips) blood-glucose meter (OneTouch #1 ea 09/22/23 02/07/24 Rx Verio Reflect Meter) lancets 33 gauge (OneTouch Delica #150 ea 09/22/23 02/07/24 Rx Plus Lancet) famotidine 20 mg tablet (Pepcid) 20 mg PO BID 4 weeks #56 tabs 11/12/23 02/09/24 Rx Patient History Medical History URI (upper respiratory infection) Thrush Nostril infection Breast mass Dysfunctional uterine bleeding Headache associated with sexual activity type 2 Ingrowing toenail Mass of right breast Pain, lower extremity Postcoital bleeding Suspected DVT (deep vein thrombosis) Varicosities of leg Chest pain Abscess of chest wall Right shoulder pain Surgical History H/O excision of epidermal inclusion cyst History of dermoid cyst excision S/P wisdom tooth extraction S/P tonsillectomy S/P LASIK surgery S/P cholecystectomy Family History Grandfather (Maternal) Colorectal cancer Grandfather Diabetes Mother Lung disease Breast cancer Depression Gallbladder disease Cancer Lung cancer Father Heart disease Myocardial infarction Lung cancer Grandmother Stroke Denies family history of Ovarian cancer Prostate cancer Social History (Updated 02/09/24 @ 11:36 by Ariana Barton RN) Smoking Status: Former smoker Tobacco Type: E-cigarettes / Vaping Age Started Using Tobacco: 19; Age Quit Using Tobacco: 32; packs per day: 1; Smoking End Date: stopped cigarettes 03/22/23. stopped vaping 05/2023; Second Hand Exposure: Yes; Do You Dip or Chew Tobacco: No; Tobacco Cessation Education Requested by Patient: No Hx Alcohol Use: No Hx Substance Use: No Preferred Language: [place] Communication Ability: Effective Visual Impairment: No Limitations Hearing Ability: Normal Engine Inspector Required: No Beliefs That Will Affect Care: None marital status: marital status details: Tim Shukla [phone] Current Living Situation: Family Current Living Situation Comment: lives with , 4yo daughter, 3 dogs, 1 cat. changes litter current occupational status: employed current occupation: [employer] Other Information That Helps Us Care for You: No Feels Safe at Home: Yes Safety Concerns: Feels Safe At This Time Childhood Exposure to Second-Hand Smoke: Yes Diet: regular Dental Care, Regularly: Yes Physical Activity Frequency: Daily Seatbelt Use: always Sunscreen Use: Yes Assistive Devices: None OB History Del. Date GA wks Lbr Lgth wt Sex Type del Anes Place Del Prov ? Comment Unknown Aborted-Elective uncertain of month/year. around 10/2003 per pt Unknown Aborted-Elective uncertain of month/year. around 12/2005 per pt 08/31/19 40 7lb 6oz. F Epi dural [facility] Dr. Flood No SECOND RIGGER History Last pap 09/[address] Flood Review of Systems denies chest pain or SOB denies fever/chills denies VITAL/changes in vision denies dysuria denies LE pain Physical Exam Physical Exam: General: Alert and oriented. No acute distress Cardiac: Regular rate and rhythm, no murmurs appreciated Respiratory: Lungs clear to auscultation bilaterally, No increased work of b reathing Abdominal: Soft, non-tender, non-distended. Bowel sounds present. Gravid uterus. Extremities: No lower extremity edema, calves non-tender bilaterally FHT: Category 1 tracing, baseline rate 135, moderate variability Genitourinary: OB Exam Abdomen: + vertex, + estimated weight (7-8 pounds) and + irregular contractions Manual OB Exam: + cervical dilation fingertip, + cervical effacement 50% and + station -1 OB Exam Monitor Tracing: + external FHT monitor used, + external uterine monitor used, + category I and + normal FHT variability speculum placed and cervix visualized. anterior lip of cervix grasped with ring forcep and rios catheter inserted into the cervical os. 40cc sterile water instilled into the balloon.the catheter was then placed on traction and attached to her left thigh. she tolerated procedure well. Code Status & VTE Plan VTE Prophylaxis Plan VTE Prophylaxis will be ordered: No Supervising Physician Co-Signing Physician Notes Resident Physician Supervision Note: I interviewed and examined the patient. Discussed with Dr. Chan and agree with findings and plan as documented in the note. Any exceptions or clarifications are listed here: [None] Documented By: Hannah Matson MD, FACOG Resident Activity Tracking Resident Involvement: Resident Care Provided Care Provided: OB Delivery
[2024-02-09 11:53] LABS: Hematocrit (blood only) 37.3 % (37.0-47.0); Hemoglobin 12.3 g/dl (12.0-16.0); Mean Corpuscular Hemoglobin 27.1 pg (25.0-34.0); Mean Corpuscular Volume 82.2 fL (80.0-100.0); Platelet Count 337 K/uL (130-400); RDW Coefficient of Variation 13.5 % (11.5-14.5); Red Blood Count 4.54 M/uL (4.20-5.40); White Blood Count 8.43 K/ul (4.8-10.8)
[2024-02-09] MEDS: CALCIUM CARBONATE 500 MG CHEWABLE TAB PO PRN (12:32)
[2024-02-09] MEDS: OXYTOCIN 30 UNITS/NSS 30 UNITS/500 ML BAG IV PRN ×2 (12:44→21:09)
[2024-02-09] MEDS: LACTATED RINGER'S 1,000 ML IV PRN (12:44)
[2024-02-09] MEDS ORDERED: SODIUM CHLORIDE 0.9% PF INJ 10 ML VIAL EPI PRN (13:15)
[2024-02-09] MEDS ORDERED: BUPIVACAINE 0.25% PF 30 ML VIAL EPI PRN (13:15)
[2024-02-09] MEDS ORDERED: NALOXONE HCL 0.4 MG/1 ML VIAL/CARP IV PRN (13:15)
[2024-02-09] MEDS ORDERED: NALBUPHINE HCL 5 MG in SYRINGE 0 ML IV PRN (13:15)
[2024-02-09] MEDS ORDERED: diphenhydrAMINE 50 MG/ML VIAL IV PRN (13:15)
[2024-02-09] MEDS ORDERED: NALOXONE HCL 1 MG in SODIUM CHLORIDE 0.9% 1,000 ML IV PRN (13:15)
[2024-02-09] MEDS ORDERED: LIDOCAINE 2% MPF LOCAL 5 ML VIAL EPI PRN (13:15)
[2024-02-09] MEDS ORDERED: ROPIVACAINE 0.5% PF 5 MG/ML 20 ML VIAL EPI PRN (13:15)
--- NOTE | 2024-02-09 16:01 | Anesthesiology Consultation ---
Date of Service February 09, 2024 Assessment & Plan ASA ASA2 Proposed Anesthesia Anesthesia Type: Labor Epidural Risk / Benefits Reviewed With: PT / POA / Parent / Guardian, Accepts Plan and Informed Consent Obtained History Height/Weight Height: 5 ft Weight: 82.372 kg Allergies Allergy/AdvReac Type Severity Reaction Status Date / Time fentanyl Allergy Severe Anaphylaxis Verified 02/09/24 11:36 Medications Home Medications Medication Instructions Recorded Confirmed Last Taken vit no.95-ferrous 1 tab PO DAILY 06/20/23 02/09/24 02/05/24 20:00 fumarate 28 mg-folic acid 800 mcg tablet () acetone (urine) test (Ketone Urine #50 ea 09/22/23 02/07/24 Unknown Test strips) blood sugar diagnostic (OneTouch #150 ea 09/22/23 02/07/24 Unknown Verio test strips) blood-glucose meter (OneTouch #1 ea 09/22/23 02/07/24 Unknown Verio Reflect Meter) lancets 33 gauge (OneTouch Delica #150 ea 09/22/23 02/07/24 Unknown Plus Lancet) famotidine 20 mg tablet (Pepcid) 20 mg PO BID 4 weeks #56 tabs 11/12/23 02/09/24 02/08/24 Active Medications Generic Name Dose Route Start Last Admin Trade Name Freq PRN Reason Stop Dose Admin Calcium Carbonate 500 mg 02/09/24 11:28 02/09/24 12:32 Calcium Carbonate 500 Mg Chewable Tab PO 03/10/24 11:27 500 mg Q6H PRN Administration Indigestion Oxytocin 30 units in 500 mls @ 8 mls/hr 02/09/24 11:28 02/09/24 15:00 Pitocin 30 Units/Nss IV 02/11/24 11:27 0.48 units/hr .Q24H PRN 8 mls/hr Labor Induction/Augmentation Titration Protocol 0.48 UNITS/HR Lactated Ringer's 1,000 mls @ 125 mls/hr 02/09/24 11:28 02/09/24 14:59 Lr IV 02/11/24 11:27 125 mls/hr .Q8H PRN Administration L&D Protocol Protocol Past Medical History Medical History URI (upper respiratory infection) Thrush Nostril infection Breast mass Dysfunctional uterine bleeding Headache associated with sexual activity type 2 Ingrowing toenail Postcoital bleeding Suspected DVT (deep vein thrombosis) Chest pain Abscess of chest wall Right shoulder pain Exercise / Class Metabolic Activity II 4-5 Yardwork/Stairs/Walk up hill Past Family History Family History Grandfather (Maternal) Colorectal cancer Grandfather Diabetes Mother Lung disease Small cell lung cancer. Breast cancer phylloides tumor, malignant, age 57 at diagnosis Depression Gallbladder disease Cancer Lung cancer Father Heart disease Myocardial infarction Lung cancer Grandmother Stroke Denies family history of Ovarian cancer Prostate cancer Past Surgical History Surgical History H/O excision of epidermal inclusion cyst 06/30/17 - Dr Ramos: inflamed epidermal cyst History of dermoid cyst excision 01/26/[address] Ramos - right inner thigh/groin: granulation tissue associated with acute and chronic inflammation including giant cell reaction surrounding follicle consistent with ruptured follicle/cyst S/P wisdom tooth extraction S/P tonsillectomy S/P LASIK surgery 2016 S/P cholecystectomy Past Anesthesia History No Hx of Anesthesia Complications and No Family Hx of Anesthesia Complications History of PONV No Hx of PONV and No Hx of Motion Sickness Social History Smoking Status: Former smoker tobacco type: cigarettes Do You Dip or Chew Tobacco: No Smoking End Date: stopped cigarettes 03/22/23. stopped vaping 05/2023 Hx Alcohol Use: No Hx Substance Use: No Review of Systems denies fever/cough/ colds/ chest pain/ SOB/ LEONIE denies LEONIE Physical Exam Vital Signs Last Vital Signs Temp 36.8 C 02/09/24 12:00 Pulse 73 02/09/24 15:16 Resp 18 02/09/24 15:00 BP 109/59 L 02/09/24 15:16 ENMT Mouth: no TMJ abnormality and no dentition abnormality Thyromental Distance: > or= 3.5 Finger Breadths Mallampati Class: II Neck neck extension not limited Respiratory normal respiratory effort; no respiratory distress Auscultation: lungs clear to auscultation bilaterally Cardiovascular Rate/Rhythm: regular rate and regular rhythm Neurologic moves all extremities Psychiatric Orientation: alert and oriented x 3 Testing Laboratory Results 02/09/24 11:36 02/09/24 13:25 POC Glucose 71
[2024-02-09] MEDS: ROPIVACAINE PF 0.125% 100 ML BAG EPI PRN (16:25)
[2024-02-09] MEDS: BUPIVACAINE 0.25% PF 30 ML VIAL EPI STA (16:28)
[2024-02-09] MEDS: ePHEDrine sulfate 50 MG/ML AMP IV PRN (16:29)
[2024-02-09] MEDS: LIDOCAINE 2%/EPINEPHRINE 1:200,000 20 ML PF EPI STA (16:35)
[2024-02-09] MEDS: SODIUM CHLORIDE 0.9% PF INJ 10 ML VIAL EPI STA (16:37)
[2024-02-09] MEDS ORDERED: PHENYLEPHRINE 100MCG/ML 10ML SYR IV ONE (16:40)
[2024-02-09] MEDS: LIDOCAINE 2%/EPINEPHRINE 1:200,000 20 ML PF ONE (17:01)
[2024-02-09] MEDS: ONDANSETRON INJ 2 MG/ML 2 ML VIAL IV PRN (17:25)
--- NOTE | 2024-02-09 17:46 | Communication Note ---
Date of Service: February 09, 2024 asked to evaluate the patient for SOB after an epidural. Pt had her epidural placed ~1630. She required two doses of ephedrine and 700 cc bolus to stabilize pressure. Baby did not decelerate during the pressure drop. Pt harjeet lightheaded and breathing was labored with pressure drop. Pt BP had stabilized but was laid flat for a cervix check and dropped her pressure and felt SOB. I was called to evaluate. Pt reports a hot spot from the epidural but is otherwise comfortable. she does not appear in distress. She is CTA b/l VSS are wnl. She did not have uterine displacement at this point. I had them place the patient in an exaggerated uterine tilt to help with pressure and the hotspot. I feel the SOB is related to the pressure drops because it improves when the pressure is stabilized. will continue to monitor
[2024-02-09] MEDS: FAMOTIDINE 20MG IV PUSH 20 MG/5 ML SYR IV ONE (18:17)
[2024-02-09] MEDS ORDERED: bisacodyL 10 MG SUPP PR PRN (21:22)
[2024-02-09] MEDS ORDERED: HYDROCORTISONE ACETATE 25 MG SUPP PR PRN (21:22)
[2024-02-09] MEDS ORDERED: BENZOCAINE 20% SPRY 85 APPLN/85 GM CAN EXT PRN (21:22)
[2024-02-09] MEDS ORDERED: ACETAMINOPHEN 325 MG TAB PO PRN (21:22)
[2024-02-09] MEDS ORDERED: OXYTOCIN 30 UNITS/NSS 30 UNITS/500 ML BAG IV PRN (21:22)
[2024-02-09] MEDS ORDERED: oxyCODONE/ACETAMINOPHEN 5mg/325mg TAB PO PRN (21:22)
--- NOTE | 2024-02-09 21:28 | Delivery Summary ---
Vaginal Delivery Summary Date of Service February 09, 2024 Vaginal Delivery Summary Patient is a 33-year-old 2 para 1-0-0-1 female EDC of 02/11/2024 who presents for induction of labor because of gestational diabetes diet-controlled. A cervical balloon was placed along with starting Pitocin per labor and delivery protocol for induction. After the balloon was expelled, membranes were ruptured for clear fluid. She received epidural analgesia which was effective. She progressed to full dilation and pushed effectively over intact perineum for delivery of a viable female . After the head was delivered, with maternal effort, the shoulders were delivered the rest of the infant delivered easily. She was placed on the mother's abdomen for further attention and drying. After stimulation she was spontaneously crying vigorously and moving all 4 limbs. After 1 minute, the cord was clamped and cut. After cord blood was obtained, the placenta was expressed intact with a three-vessel cord. bleeding was controlled with dilute Pitocin and fundal massage. There is a superficial abrasion at the fourchette which was not bleeding and therefore not repaired. QBL was 153 mL. Mother and infant were doing well after delivery[place] [facility] [place] Delivery Type Details: [facility]
[2024-02-09] MEDS: ACETAMINOPHEN 325 MG TAB PO PRN (22:00)
[2024-02-09] MEDS: FAMOTIDINE 20 MG TAB PO SCH (22:02)
[2024-02-09] MEDS: DIPHTHER/TETAN/PERTUS Vaccine (Tdap, Adol/Adult) 0.5mL IM ONE (22:03)
--- NOTE | 2024-02-10 06:13 | Obstetrical Progress Note ---
Date of Service <Reji Chan DO - Last Filed: 02/10/24 06:16> February 10, 2024 Assessment & Plan <Reji Chan DO - Last Filed: 02/10/24 06:16> (1) Encounter for assessment: visit type: exam and care immediately after delivery Qualified Code(s): Z39.0 - Encounter for care and examination of mother immediately after delivery Plan 33 y/o PPD#1: Eating well, voiding well, ambulating well Vitals reviewed, WNL Pain well controlled with Tylenol Routine post care - OOB, ambulation, diet progression as tolerated Will have 6 week follow up with Dr. Doe <Hannah Matson MD, FACOG - Last Filed: 02/10/24 07:38> (1) Encounter for assessment: Subjective <Reji Chan DO - Last Filed: 02/10/24 06:16> Ambulation: ambulating normally Voiding: no voiding problems Passing Gas:: Yes Diet Tolerance:: regular diet Lochia:: Moderate Feeding Type:: breast feeding pain well controlled with Tylenol Review of Systems -Endorses new onset subjective chills but without fever - denies dysuria, rhinorrhea, cough, congestion -Denies dyspnea, chest pain, or palpitations -Denies headache or changes in vision Physical Exam <Reji Chan DO - Last Filed: 02/10/24 06:16> General: Alert and oriented. No acute distress Cardiac: Regular rate and rhythm, no murmurs appreciated Respiratory: Lungs clear to auscultation bilaterally, No increased work of breathing Abdominal: Soft, non-tender, non-distended. Bowel sounds present. Uterus: Uterine fundus firm, palpable below umbilicus Extremities: No lower extremity edema, calves non-tender bilaterally Results & Data <Reji Chan DO - Last Filed: 02/10/24 06:16> Vital Signs (Past 12 Hours) Vital Signs Temp Pulse Pulse Resp BP BP BP 02/10/24 04:40 36.9 C 89 18 118/80 02/09/24 23:55 36.8 C 100 H 18 122/73 02/09/24 23:14 105 H 117/61 02/09/24 22:59 106 H 114/56 L 02/09/24 22:44 120 H 148/72 H 02/09/24 22:29 114 H 135/72 02/09/24 22:15 104 H 02/09/24 22:14 111 H 131/76 02/09/24 22:10 89 02/09/24 22:05 96 H 02/09/24 22:00 96 H 02/09/24 21:55 94 H 02/09/24 21:50 103 H 02/09/24 21:45 103 H 02/09/24 21:44 100 H 138/79 02/09/24 21:40 107 H 02/09/24 21:35 87 02/09/24 21:30 112 H 02/09/24 21:29 111 H 129/72 02/09/24 21:25 105 H 02/09/24 21:20 100 H 02/09/24 21:15 93 H 02/09/24 21:10 111 H 02/09/24 21:06 109 H 125/86 02/09/24 21:05 109 H 02/09/24 21:00 105 H 02/09/24 20:55 115 H 02/09/24 20:50 107 H 02/09/24 20:48 108 H 02/09/24 20:45 96 H 02/09/24 20:40 115 H 02/09/24 20:39 100 H 02/09/24 20:35 109 H 02/09/24 20:30 121 H 02/09/24 20:28 103 H 113/64 02/09/24 20:25 110 H 02/09/24 20:20 102 H 02/09/24 20:15 104 H 02/09/24 20:10 101 H 02/09/24 20:05 107 H 02/09/24 20:00 104 H 02/09/24 19:55 91 H 02/09/24 19:50 106 H 02/09/24 19:48 109 H 02/09/24 19:45 123 H 02/09/24 19:42 130 H 02/09/24 19:42 104 H 135/79 02/09/24 19:40 119 H 02/09/24 19:38 121 H 131/77 02/09/24 19:35 104 H 02/09/24 19:32 105 H 122/73 02/09/24 19:30 114 H 02/09/24 19:28 103 H 111/62 02/09/24 19:25 111 H 02/09/24 19:22 109 H 129/60 02/09/24 19:20 96 H 02/09/24 19:18 36.8 C 96 H 113/69 02/09/24 19:15 107 H 02/09/24 19:11 107 H 125/57 L 02/09/24 19:10 117 H 02/09/24 19:09 100 H 127/78 02/09/24 19:05 119 H 02/09/24 19:03 123 H 119/75 02/09/24 19:00 117 H 02/09/24 18:57 108 H 124/77 02/09/24 18:55 121 H 02/09/24 18:52 111 H 125/76 02/09/24 18:50 123 H 02/09/24 18:46 96 H 128/75 02/09/24 18:45 121 H 02/09/24 18:43 94 H 126/67 02/09/24 18:40 110 H 02/09/24 18:36 111 H 110/68 02/09/24 18:35 89 02/09/24 18:31 103 H 113/69 02/09/24 18:30 89 20 02/09/24 18:26 108 H 114/72 02/09/24 18:25 90 02/09/24 18:21 114 H 112/70 02/09/24 18:20 88 02/09/24 18:16 112 H 113/69 02/09/24 18:15 113 H 02/09/24 18:14 75 02/09/24 18:12 108 H 116/77 Pulse Ox O2 Del Method 02/10/24 04:40 99 Room Air 02/09/24 23:55 97 Room Air 02/09/24 23:14 02/09/24 22:59 02/09/24 22:44 02/09/24 22:29 02/09/24 22:15 99 02/09/24 22:14 02/09/24 22:10 100 02/09/24 22:05 100 02/09/24 22:00 100 02/09/24 21:55 100 02/09/24 21:50 100 02/09/24 21:45 100 02/09/24 21:44 02/09/24 21:40 99 02/09/24 21:35 100 02/09/24 21:30 99 02/09/24 21:29 02/09/24 21:25 100 02/09/24 21:20 99 02/09/24 21:15 99 02/09/24 21:10 100 02/09/24 21:06 02/09/24 21:05 97 02/09/24 21:00 98 02/09/24 20:55 99 02/09/24 20:50 96 02/09/24 20:48 87 L 02/09/24 20:45 99 02/09/24 20:40 100 02/09/24 20:39 81 L 02/09/24 20:35 99 02/09/24 20:30 100 02/09/24 20:28 02/09/24 20:25 100 02/09/24 20:20 100 02/09/24 20:15 100 02/09/24 20:10 100 02/09/24 20:05 100 02/09/24 20:00 100 02/09/24 19:55 100 02/09/24 19:50 99 02/09/24 19:48 85 L 02/09/24 19:45 98 02/09/24 19:42 02/09/24 19:42 83 L 02/09/24 19:40 99 02/09/24 19:38 02/09/24 19:35 99 02/09/24 19:32 02/09/24 19:30 99 02/09/24 19:28 02/09/24 19:25 99 02/09/24 19:22 02/09/24 19:20 100 02/09/24 19:18 02/09/24 19:15 98 02/09/24 19:11 02/09/24 19:10 99 02/09/24 19:09 02/09/24 19:05 99 02/09/24 19:03 02/09/24 19:00 99 02/09/24 18:57 02/09/24 18:55 99 02/09/24 18:52 02/09/24 18:50 99 02/09/24 18:46 02/09/24 18:45 99 02/09/24 18:43 02/09/24 18:40 99 02/09/24 18:36 02/09/24 18:35 97 02/09/24 18:31 02/09/24 18:30 96 02/09/24 18:26 02/09/24 18:25 97 02/09/24 18:21 02/09/24 18:20 99 02/09/24 18:16 02/09/24 18:15 91 02/09/24 18:14 87 L 02/09/24 18:12 Supervising Physician <Hannah Matson MD, FACOG - Last Filed: 02/10/24 07:38> Co-Signing Physician Notes Resident Physician Supervision Note: I interviewed and examined the patient. Discussed with Dr. Chan and agree with findings and plan as documented in the note. Any exceptions or clarifications are listed here: [None] Documented By: Hannah Matson MD, FACOG Resident Activity Tracking <Reji Chan DO - Last Filed: 02/10/24 06:16> Resident Involvement: Resident Care Provided Care Provided: OB Delivery
[2024-02-10] MEDS: IBUPROFEN 600 MG TAB PO PRN (06:15)
[2024-02-10 07:54] LABS: Hematocrit (blood only) 33.1 % (37.0-47.0); Hemoglobin 10.9 g/dl (12.0-16.0); Mean Corpuscular Hemoglobin 27.3 pg (25.0-34.0); Mean Corpuscular Hgb Conc 32.9 g/dL (32.0-36.0); Mean Platelet Volume 9.2 fL (9.4-12.4); Platelet Count 259 K/uL (130-400); RDW Coefficient of Variation 13.2 % (11.5-14.5); RDW Standard Deviation 40.1 fL (36.4-46.3); Red Blood Count 3.99 M/uL (4.20-5.40); White Blood Count 11.92 K/ul (4.8-10.8)
[2024-02-10] MEDS: DOCUSATE SODIUM 100 MG CAP PO SCH (08:59)
[2024-02-10] MEDS: PRENATAL VITAMIN 1 TAB PO SCH (09:00)
--- NOTE | 2024-02-10 11:07 | Anesthesia Procedure Note ---
Date of Service February 10, 2024 Anesthesia Post Epidural Note Vital Signs Vital Signs: Temp Pulse Resp BP Pulse Ox O2 Del Method 36.8 C 69 14 111/74 99 Room Air 02/10/24 09:25 02/10/24 09:25 02/10/24 09:25 02/10/24 09:25 02/10/24 09:25 02/10/24 09:25 Pain Intensity Bilateral Anterior Abdomen: Pain Intensity: 1 Notes Mental Status: alert / awake / arousable Nausea / Vomiting: adequately controlled Pain: adequately controlled Airway Patency, RR, SpO2: stable & adequate BP & HR: stable & adequate Hydration State: stable & adequate Neuraxial Anesthesia: was administered and sensory block is resolving Anesthetic Complications: no major complications apparent and Pt Satisfied with anesthetic care Epidural: Removed without complications and With tip intact
[2024-02-10 20:09] VITALS: BP 110/71; PULSE 69; RESP 18; TEMP 98.2; O2SAT 99
[2024-02-10] MEDS: bisacodyL 5 MG TABEC PO SCH (20:27)
== END 2024-02-10 22:20 | disposition home or self-care (01) | DRG 807 ==
LOC: 4S1 11:19 → 4E2 23:40
DX: Z3A.39 39 weeks gestation of pregnancy; Z37.0 Single live birth; O24.420 Gestational diabetes mellitus in childbirth, diet controlled